=== PATIENT | female | born 1985 | race Hispanic/Latino ===

== ENCOUNTER 2019-08-13 17:11 | Day surgery (SDC) | payer OTHER ==
[2019-08-13] MEDS ORDERED: hydrALAZINE 20 MG/ML VIAL SLOW IVP PRN (18:10)
[2019-08-13 18:18] VITALS: BMI 35.7
[2019-08-13 18:41] LABS: Bilirubin Negative (Negative); Blood, Urine Negative (Negative); Clarity Clear (Clear); Glucose, Urine (Dipstick) Normal (Negative); Leukocyte Negative Leu/uL (Negative); Nitrite Negative (Negative); Protein, Urine (Dipstick) Negative (Neg-Trace); RBC/HPF 0-3 HPF (0-3); Squamous Epithelial 0-3 HPF (0-3); Urobilinogen Normal mg/dL (Less than 2)
[2019-08-13 18:44] LABS: Bacteria/HPF 1+ HPF (None Seen)
[2019-08-13] MEDS ORDERED: Lactated Ringer's 1,000 ML IV SCH ×2 (19:15)
[2019-08-13] MEDS: Sodium Chloride 0.9% 1,000 ML IV SCH ×2 (19:25→21:14)
[2019-08-13] MEDS ORDERED: Acetaminophen 500 MG TAB PO SCH (19:30)
[2019-08-13] MEDS ORDERED: Ondansetron PF 4 MG/2 ML Vial IVP SCH (19:30)
[2019-08-13 19:34] LABS: #Eosinphils 0.1 thou/uL (0.0-0.7); #Lymphocytes 1.8 thou/uL (1.20-3.40); #Monocytes 0.7 thou/uL (0.11-0.59); #Neutrophils 10.6 thou/uL (1.40-6.50); %Basophils 0.1 % (0.0-1.0); %Eosinophils 0.6 % (0.0-10.0); %Lymphocytes 13.4 % (21.0-51.0); %Neutrophils 80.9 % (42.0-75.0); Hemoglobin 11.8 g/dL (12.0-16.0); Mean Corpuscular HGB CONC 34.5 g/dL (32.0-36.0); Mean Corpuscular Hemoglobin 27.5 pg (27.0-31.0); Mean Corpuscular Volume 79.8 fL (78.0-98.0); Mean Platelet Volume 7.3 fL (7.4-10.4); Platelet Count 318 thou/uL (130-400); RBC Distribution Width 15.5 % (11.5-14.5); White Blood Cell (WBC) Count 13.1 thou/uL (4.8-10.8)
[2019-08-13] MEDS ORDERED: cefTRIAXone\\ROCEPHIN 2 GM in Sodium Chloride 0.9% 100 ML IVPB SCH (20:00)
--- NOTE | 2019-08-13 20:01 | ULT ---
ULTRASOUND RETROPERITONEUM COMPLETE: (RENAL) DATE: 08/13/2019 HISTORY: 34-year-old female with bilateral flank pain and nausea FINDINGS: The right kidney measures 13 x 6 x 5 cm. The left kidney measures 13 x 4 x 5.5 cm. Both kidneys have normal parenchymal echogenicity. There is no hydronephrosis. No moderate sized or large renal cystic or solid renal lesion is identified. The urinary bladder is empty, recently catheterized just prior to ultrasound exam. IMPRESSION: Normal
--- NOTE | 2019-08-13 20:06 | PRG ---
DATE OF SERVICE: 08/13/2019 PRIMARY OB: [facility]. CHIEF COMPLAINT: Flank pain. HISTORY OF PRESENT ILLNESS: The patient is a 34-year-old, G7, P4 female with an intrauterine at 23 weeks and 2 days, presenting with a 3-day history of left-sided flank pain, 1-day history of nausea and vomiting. She reports that the pain is in her left lower back area and it had been this morning wrapping around her abdomen to the front with sharp and stabbing, and at its most intense time earlier today, the patient had vomited twice. She also reports that the pain was so bad, is having trouble getting comfortable in any position. The patient reports that since coming to the hospital, without any medication, she is feeling better. She still has some pain in the left thigh, but it is minimal. The patient reports a history of pyelonephritis with her previous . She denies any known history of kidney stones. The patient recently was placed on amoxicillin for sinusitis that she has since completed. The patient denies fever. She does report feeling shaky at times. She denies headache, chest pain, or shortness of breath. She has had nausea for the last few days, but vomited twice today and had diarrhea yesterday. Denies constipation. Denies any new rashes, hip problems, knee problems, or muscle weakness. She does report also left-sided pain in her lower back and hip region that is worse with activity and movement. She denies urinary urgency or frequency. PAST MEDICAL HISTORY: History of pyelonephritis with her previous . PAST SURGICAL HISTORY: She has had 3 prior C-sections, D and C x2. ALLERGIES: NO KNOWN DRUG ALLERGIES. MEDICATIONS: 1. vitamins. 2. Recent course of amoxicillin. SOCIAL HISTORY: Denies drug, alcohol, or tobacco use. OB LABS: Unavailable at the time of dictation. REVIEW OF SYSTEMS: Per HPI. PHYSICAL EXAMINATION: VITAL SIGNS: Blood pressure 108/59, heart rate of 90, saturating at 100% on room air. Reported temperature of afebrile. GENERAL: The patient appears to be in no acute distress. She is alert, oriented, cooperative, and pleasant to interact with. HEAD: Normocephalic and atraumatic. LUNGS: Clear to auscultation bilaterally. HEART: Has a regular rate and rhythm. ABDOMEN: Gravid and soft and nontender. EXTREMITIES: Nontender and nonedematous. She has some SI joint tenderness on her back on the left side. She also had some plus or minus flank tenderness or CVA tenderness that is not easy to appreciate. : Exam has been deferred. heart tracing shows the fetus in the 140s with moderate retirement variability. Tocometer showing some irritability, not felt by the patient. LABORATORY DATA: Urinalysis shows negative for protein, 10 for ketones, negative for blood, negative for nitrites, negative for leukocyte esterase, 4 to 6 white blood cells, and 1+ bacteria. CBC is pending. ASSESSMENT AND PLAN: The patient is a 34-year-old multiparous female with an intrauterine at 23 weeks, coming in with 3 days of nausea, 1 day of vomiting, and severe pain that has since resolved. Urinalysis suggests point away from a kidney stone and suggests infection with the bacteria being present and 0 to 3 squamous cells. A urine culture has been ordered. The patient will be given 2 g of Rocephin IV with 2 L of IV fluids. The patient is afebrile and reports significant improvement in her symptoms spontaneously. I have ordered an ultrasound to evaluate her ureters and kidney. If everything appeared unremarkable, the patient will prefer to be discharged home with followup tomorrow here for perhaps another dose of Rocephin and follow up on urine cultures rather than in-house management. The patient has been given instructions that should she experiences significant worsening of her symptoms or fever, that she is to come back sooner. Job ID: [id number]
== END 2019-08-13 22:45 | disposition home or self-care (01) ==
LOC: L&D/OP 17:11
PROVIDERS: ATTEND Obstetrics & Gynecology
DX: O99.89 Other specified diseases and conditions complicating pregnancy, childbirth and the puerperium (principal); R10.9 Unspecified abdominal pain; Z3A.23 23 weeks gestation of pregnancy
CPT/HCPCS: 36415; 51701; 76770; 81001; 85025; 87077; 87086; 87186; 96361; 96365; 99283; J0696; J3490

== ENCOUNTER 2019-08-14 20:19 | Day surgery (SDC) | payer OTHER ==
[2019-08-14] MEDS ORDERED: hydrALAZINE 20 MG/ML VIAL SLOW IVP PRN (20:48)
--- NOTE | 2019-08-14 20:49 | PDOC.EVN ---
Event Note - Event Note Event Note: 10/14/19 patient just arrived for follow up, as per Dr Gilmore orders, from yesterday visit. I have ordered another IV dose of Rocephin. See dictation.
[2019-08-14 20:58] VITALS: BMI 35.4
[2019-08-14] MEDS ORDERED: Sodium Chloride 0.9% 1,000 ML IV SCH (21:00)
[2019-08-14] MEDS ORDERED: cefTRIAXone\\ROCEPHIN 1 GM in Sodium Chloride 0.9% 100 ML IVPB SCH (21:00)
--- NOTE | 2019-08-14 21:22 | PDOC.EVN ---
Event Note - Event Note Event Note: Patient seen at bedside Plan reviewed with her APU1 She is afebrile and BPs normal FHTs normal by Doppler We will await final UC&S after this IV Roscehin completed. Arelis with RX for macrobid. Clinically well
[2019-08-14 21:29] VITALS: BP 121/66; TEMP 98.5
[2019-08-14] MEDS ORDERED: FLU VACC QS2019-20(6MOS UP)/PF 60 MCG/0.5 ML SYRINGE IM ONE (22:00)
--- NOTE | 2019-08-14 22:02 | HP ---
TIME OF EVALUATION: 2049. LOCATION: Labor and delivery triage. PRIMARY OBSTETRICAL PROVIDER: [facility]. CHIEF COMPLAINT: Here for followup from yesterday's visit. HISTORY OF PRESENT ILLNESS: In brief, this is a patient who presented yesterday with Dr. Matt Gilmore transportation design engineer. The patient presented with a chief complaint of flank pain. The patient is a 34-year-old, G7, P4, with an IUP, who was at 23 weeks and about 3 days now, who presented with a 3-day history of left-sided flank pain yesterday. She also had some nausea and vomiting. Upon yesterday's evaluation, she received Rocephin and a urine culture was collected. She was told to come back today for urine culture followup and perhaps another dose of Rocephin. The working diagnosis at that time was possible UTI/early pyelonephritis. As the patient was clinically well, she was treated as an outpatient. Yesterday, she also had a renal ultrasound performed and the renal ultrasound, dated 08/13/2019, showed no hydronephrosis, no abnormal cystic or solid mass was identified, and the kidneys had normal parenchymal density. Impression was a normal ultrasound. The patient presents now and states that she feels better and her urine culture from yesterday has been reviewed by me. It is presumptively E. coli, but sensitivities are not back. PAST MEDICAL HISTORY: She does have a history of pyelonephritis with a previous . PAST SURGICAL HISTORY: Includes three prior C-sections and a D and C x2. ALLERGIES: NONE. MEDICATIONS: Include vitamins and a recent course of amoxicillin. SOCIAL HISTORY: Denies alcohol, drug, or tobacco use. PHYSICAL EXAMINATION: The patient will have a physical completed once she is fully admitted, as she has just arrived to labor and delivery and I have intervened early to place orders, and I am awaiting final nurse assessment for me to go in and see the patient. ASSESSMENT: This is a 34-year-old multiparas female at 23 weeks with possible urinary tract infection/subclinical pyelonephritis. Clinically she is better status post yesterday's treatment. She is here for followup per physician orders. PLAN: 1. We will continue with her IV fluids and give her normal saline. 2. The patient looks clinically well. 3. I have ordered 1 g of Rocephin in continuation of yesterday's plan. 4. I will write for her to have Macrobid as an outpatient for 10 more days. 5. I have instructed her to follow up with [facility] to make sure that the sensitivities of the urine culture are appropriate. Job ID: [id number]
== END 2019-08-14 22:50 | disposition home or self-care (01) ==
LOC: ERS 20:19 → L&D/OP 20:26
PROVIDERS: ATTEND Obstetrics & Gynecology
DX: O99.89 Other specified diseases and conditions complicating pregnancy, childbirth and the puerperium (principal); R10.9 Unspecified abdominal pain; O34.219 Maternal care for unspecified type scar from previous cesarean delivery; Z3A.23 23 weeks gestation of pregnancy
CPT/HCPCS: 96361; 96365; 99282; J0696; J3490

== ENCOUNTER 2019-08-26 13:22 | Inpatient (IN) | payer OTHER ==
[2019-08-26 17:59] VITALS: BMI 36.6
[2019-08-26] MEDS ORDERED: hydrALAZINE 20 MG/ML VIAL SLOW IVP PRN (18:34)
[2019-08-26] MEDS ORDERED: Acetaminophen 500 MG TAB PO PRN (18:34)
[2019-08-26] MEDS ORDERED: Docusate 100 MG CAP PO PRN (18:34)
[2019-08-26] MEDS ORDERED: Ondansetron PF 4 MG/2 ML Vial IVP PRN (18:34)
[2019-08-26 19:07] LABS: #Eosinphils 0.1 thou/uL (0.0-0.7); #Lymphocytes 1.6 thou/uL (1.20-3.40); #Monocytes 0.5 thou/uL (0.11-0.59); #Neutrophils 6.5 thou/uL (1.40-6.50); %Basophils 0.2 % (0.0-1.0); %Eosinophils 1.5 % (0.0-10.0); %Lymphocytes 18.5 % (21.0-51.0); %Monocytes 6.1 % (0.0-10.0); %Neutrophils 73.8 % (42.0-75.0); Hemoglobin 10.7 g/dL (12.0-16.0); Mean Corpuscular HGB CONC 34.4 g/dL (32.0-36.0); Mean Corpuscular Hemoglobin 27.3 pg (27.0-31.0); Mean Corpuscular Volume 79.2 fL (78.0-98.0); Mean Platelet Volume 6.6 fL (7.4-10.4); Platelet Count 275 thou/uL (130-400); RBC Distribution Width 14.6 % (11.5-14.5); Red Blood Cell (RBC) Count 3.94 mill/uL (4.20-5.40); White Blood Cell (WBC) Count 8.8 thou/uL (4.8-10.8)
[2019-08-26 19:25] LABS: ALT (SGPT) 9 U/L (8-55); AST (SGOT) 17 U/L (5-34); Albumin 3.4 g/dL (3.5-5.0); Alkaline Phosphatase 113 U/L (40-110); Anion Gap 11 mmol/L (10-20); BUN (Urea Nitrogen) 7 mg/dL (7.0-18.7); Bilirubin, Total 0.2 mg/dL (0.2-1.2); Calc. Creatinine Clearance 206 mL/min (70-130); Calcium 8.8 mg/dL (7.8-10.44); Carbon Dioxide 20 mmol/L (22-29); Chloride 108 mmol/L (98-107); Estimated GFR-MDRD Greater than 90; Globulin 3.5 g/dL (2.4-3.5); Glucose 95 mg/dL (70-105); Potassium 3.7 mmol/L (3.5-5.1); Protein, Total 6.9 g/dL (6.0-8.3); Sodium 135 mmol/L (136-145)
--- NOTE | 2019-08-26 20:32 | PDOC.FPRHP ---
- History of Present Illness Chief Complaint: Abdominal pain History of Present Illness: Patient is a 34 yo female who is currently at 24.5 weeks by LMP c/w 15.6 wk U/S (GREG 12/11/19) who presents with complaint of abdominal pain. Patient states that the pain is sharp and occurs on/off in her left flank region. Pain radiates around to LLQ and left groin. Patient states when pain starts it brings her to tears. She says this pain is similar to the pain she was experiencing during her prior admission to [facility] for nephrolithiasis on 08/23- 10/31. At that time she passed black sediment and pain improved. She states when she went home from that admission she thought the pain had resolved and did not experience any additional pain episodes until earlier this morning. Patient additionally complains of nausea, headache, blurry vision, and dizziness. Denies vomiting, dysuria, fever/chills, itching. Of note patient has an initial presentation on UTI on 08/13-01/01 for which she was treated with Rocephin and Amoxicillin. During the admission on 08/23/19 she did not receive any ABx. Urine culture was taken during that admission though and did result with ESBL E. Coli earlier today. - Allergies/Adverse Reactions Allergies Allergy/AdvReac Type Severity Reaction Status Date / Time No Known Allergies Allergy Verified 08/26/19 23:22 - Home Medications Medication Instructions Recorded Confirmed Type Vitamin 1 tab PO DAILY tab 04/20/17 08/26/19 Rx Clotrimazole 1% Cream [Lotrimin 1% 0 gm TOP BID #1 tube 08/24/19 08/26/19 Rx Cream] Sulfamethoxazole/Trimethoprim 1 tab PO BID 10 Days #20 tab 08/27/19 Rx [Bactrim DS] - History PMHx: Hx of pyelonephritis with last (6th) for which she was hospitalized for 5 days. Hx of nephrolithiasis in this with previous admission on 08/23/19. OB Hx: 1 , 2 spontaneous abortions, 2 D&C and 3 C-sections. Current at 24.5 wks by LMP c/w 15.6 wk U/S. Borderline 1hr GTT at 136. PSHx: as above, left tibia & fibula repair in March 2016, left ankle--3 repairs/ revisions in 2017 FHx: HTN, T2DM, CAD, Ovarian Cancer in mother (dx in age 40s) and maternal aunt (dx in age 50s); Uterine Cancer in maternal grandmother (dx in age 70s) Social: Denies tobacco or EtOH use - Review of Systems General: denies: fever/chills, weight/appetite/sleep changes, fatigue Eyes: reports: vision changes ENT: denies: nasal congestion, rhinorrhea Respiratory: denies: cough, congestion, shortness of breath Cardiovascular: denies: chest pain, edema Gastrointestinal: reports: nausea, abdominal pain. denies: vomiting, diarrhea, constipation Genitourinary: denies: dysuria, discharge Skin: denies: rashes, lesions Musculoskeletal: denies: pain, tenderness, swelling Neurological: denies: numbness, weakness - Vital signs BP: 113/71 HR: 97 RR: 18 Tmax: 98.3F Pox: 96% on RA Wt: 100 kg - Physical Exam Constitutional: NAD, awake, alert and oriented, well developed HEENT: normocephalic and atraumatic, EOMI, conjunctiva clear, grossly normal vision, grossly normal hearing, MMM Neck: supple, FROM, no JVD Heart: RRR, normal S1/S2, no murmurs/rubs/gallops, pulses present, no edema Lungs: CTAB, no respiratory distress, no rales/rhonchi, no wheezing Abdomen: soft, bowel sounds present -Abdomen: TTP across lower abdomen. Positive for CVA tenderness on left. Musculoskeletal: normal structure, normal tone Neurological: no focal deficit, normal sensation Skin: no rash/lesions, good turgor Psychiatric: normal mood and affect, intact recent and remote memory FMR H&P: Results - Labs Result Diagrams: 08/26/19 18:57 08/26/19 18:57 Lab results: WBC 8.8 thou/uL (4.8-10.8) 08/26/19 18:57 Hgb 10.7 g/dL (12.0-16.0) L 08/26/19 18:57 Hct 31.2 % (36.0-47.0) L 08/26/19 18:57 MCV 79.2 fL (78.0-98.0) 08/26/19 18:57 Plt Count 275 thou/uL (130-400) 08/26/19 18:57 Neutrophils % 73.8 % (42.0-75.0) 08/26/19 18:57 Sodium 135 mmol/L (136-145) L 08/26/19 18:57 Potassium 3.7 mmol/L (3.5-5.1) 08/26/19 18:57 Chloride 108 mmol/L (98-107) H 08/26/19 18:57 Carbon Dioxide 20 mmol/L (22-29) L 08/26/19 18:57 BUN 7 mg/dL (7.0-18.7) 08/26/19 18:57 Creatinine 0.60 mg/dL (0.6-1.1) 08/26/19 18:57 Glucose 95 mg/dL (70-105) 08/26/19 18:57 Calcium 8.8 mg/dL (7.8-10.44) 08/26/19 18:57 Total Bilirubin 0.2 mg/dL (0.2-1.2) 08/26/19 18:57 AST 17 U/L (5-34) 08/26/19 18:57 ALT 9 U/L (8-55) 08/26/19 18:57 Alkaline Phosphatase 113 U/L (40-110) H 08/26/19 18:57 Serum Total Protein 6.9 g/dL (6.0-8.3) 08/26/19 18:57 Albumin 3.4 g/dL (3.5-5.0) L 08/26/19 18:57 - Radiology Interpretation Other Status: report reviewed by me (Renal U/S: normal, no hydronephrosis seen) FMR H&P: A/P - Problem List (1) ESBL (extended spectrum beta-lactamase) producing bacteria infection Status: Acute Code(s): A49.9 - BACTERIAL INFECTION, UNSPECIFIED; Z16.12 - EXTENDED SPECTRUM BETA LACTAMASE (ESBL) RESISTANCE (2) UTI (urinary tract infection) during Status: Acute Code(s): O23.40 - UNSP INFECTION OF URINARY TRACT IN , UNSP TRIMESTER (3) Second trimester Status: Acute Code(s): Z34.92 - ENCNTR FOR SUPRVSN OF NORMAL PREG, UNSP, SECOND TRIMESTER (4) History of nephrolithiasis Status: Acute Code(s): Z87.442 - PERSONAL HISTORY OF URINARY CALCULI (5) History of pyelonephritis during Status: Acute Code(s): Z87.59 - PERSONAL HISTORY OF COMP OF PREG, CHLDBRTH AND THE PUERP; Z87.440 - PERSONAL HISTORY OF URINARY (TRACT) INFECTIONS - Plan Patient is a 24yo female at 24.5 wks EGA who presents with abdominal and flank pain is admitted for UTI and suspected nephrolithiasis: #UTI -Urine culture from 08/23/19 admission returned positive for ESBL E. Coli -start Bactrim PO -vitals q4h, currently afebrile -CBC, CMP, procal #Nephrolithiais, suspected -during previous admission on 08/23/19 patient passed black sediment, experience similar pain today -will repeat Renal U/S (last admission showed right hydronephrosis) -consider abdominal CT if renal u/s returns abnormal -continue to strain urine -LR @ 125 #2nd Trimester -at 24.5 wks today by LMP consistent with 15.6 wk U/S -GREG is 12/11/2019 -recent 1h GTT was borderline, glucose 136 -will check fasting BG in AM Diet: Regular Code status: FULL Dispo: Stable, admitted for observation on women's unit. Will check Renal U/S and continue to monitor for additional stone passage. Treat UTI and rehydrate. Anticipate LOS <2 days. FMR H&P: Upper Level - Pertinent history 34 year old at 24.5 wks by LMP/15.6 wks with GREG 12/11/2018 presents for ESBL E. coli UTI. Patient was seen on 08/23-08/24 and diagnosed with nephrolithiasis. Patient passed stone/sludge at that time. Her symptoms remarkably improved with hydration and passing of stone. Urine culture results from that hospital stay were ESBL E. coli, sensitive to bactrim. She was also hospitalized 08/13-08/14 for UTI. She was treated with rocephin and amoxicililn and then transitioned to 10 day course of macrobid. Patient initially felt better after starting antibiotics, but symptoms acutely worsened and she had severe left sided flank pain that she described as debilitating and associated with nausea and vomiting which prompted her second ED visit. Patient states that since last discharge from hospital, she has been doing well. Last night she started to have left sided flank pain again. She denies dysuria, vaginal bleeding, vaginal discharge, LoF, or contractions. Pain is 5/10 today, whereas previously it had been 10/10. Patient instructed to strain her urine after last discharge from hospital. Patient endorses dizziness and blurry vision. PMH: Recurrent UTI's OB Hx: Hx pyelonephritis in previous , SAB x2 with D&C x2, nephrolithiasis during current Surgical Hx: C/S x3, 3 ankle surgeries FH: Mom with ovarian cancer in 40's, maternal aunt with ovarian cancer Allergies: NKDA - Pertinent findings General: Alert and oriented x3. No acute distress. HEENT: MMM, EOMI Resp: CTA, No acute respiratory distress Card: RRR, No murmur Abdomen: Soft, non-tender. Left sided CVA. Gravid. Ext: No cyanosis or edema Skin: No rashes or lesions. - Plan Date/Time: 08/26/192031 I, Venus Maldonado, have evaluated this patient and agree with findings/plan as outlined by operations intern resident. Pertinent changes/additions are listed here. ESBL E. coli UTI - Urine culture from recent hospitalization 08/24 - Sensitive to bactrim which was started 08/26 - Complete course of bactrim and start patient on ppx with Macrobid for remainder of - Renal ultrasound with no abnormalities - Patient passed stone/sludge during last hospitalization. She has been straining since that time and has not collected anything. - Continue to strain - Patient with minor CVA tenderness, but much improved from last hospitalization. - Maintenance IVF @ 125 mL/hr - REBECCA after completion of antibiotics - Procalcitonin 0.04 Nephrolithiasis - Appears resolved - continue to strain urine, passed stone/sludge during last visit. - Will fluid hydrate with LR @ 125 mL/hr Hx pyelonephritis in previous and current - No evidence of kidney inflammation on renal ultrasound done on this hospital admission - Patient appears clinically improved - Treating for ESBL E. coli UTI as indicated above Recurrent UTI's - Will need to be on macrobid for ppx during remainder of after treatment for ESBL E. coli UTI Hx SAB x2 - D&C x2 AMA - Needs anatomy ultrasound with MFM - NIPT declined - Patient not on daily ASA Borderline 1h GTT - Will do FBG while in hospital - Recommend 3h GTT outpatient sIUP - at 24.5 wks - IOB labs reviewed and WNL Anemia of - H/H 10.7/31.2 - Will start iron supplementation, will also add stool softener - Consider iron transfusion at 28 wks C/S x3 - Patient at risk for placenta accreta - Followed by M Dispo: Admit to Radiology Asst/Women's. Anticipate LOS 24-48 hours. Addendum - Attending - Attending Attestation Date/Time: 08/26/191926 I personally evaluated the patient and discussed the management with Dr. Dillard and Joel I agree with the History, Examination, Assessment and Plan documented above with any addition or exceptions noted below. Sent for direct admission from clinic due to concern for infected nephrolithasis. Patient recently admitted for nephrolithasis. Culture at time of admission recent resulted as positive. Patient states pain has improved since discharge. Again denies urinary symptoms. Will place patient in obs. Treat based on sensitivities. Due to recurrent hx of positive urine cultures, will need ppx until 6 wks pp. Would consider macrobid vs keflex. Renal sono ordered and pending at present to evaluate for stone. Patient has been straining urine. Last evidence of stone passage was during hospital stay. Denies fever and chills. +FM. No ctx, LOF, and VB. Marcellus
[2019-08-26] MEDS: Lactated Ringer's 1,000 ML IV SCH (20:35)
--- NOTE | 2019-08-26 20:39 | ULT ---
RENAL ULTRASOUND: Date: 08-26-19 Comparison: 08-23-19 History: Recurrent urinary tract infection. Technique: Multiplanar grayscale sonographic imaging of the kidneys and urinary bladder obtained. FINDINGS: Left kidney measures 12.5 x 6.1 x 5.6 cm and the right kidney measures 12.0 x 5.5 x 6.3 cm. Urinary b ladder volume is 108 cc. No renal mass, hydronephrosis or renal stone noted. IMPRESSION: Unremarkable renal ultrasound. POS: ROSHNI
[2019-08-26] MEDS ORDERED: Sulfameth/Trimethoprim DS 800-160mg TAB PO SCH (21:45)
[2019-08-26] MEDS ORDERED: diphenhydrAMINE 25 MG CAP PO PRN (23:10)
[2019-08-27] MEDS: Lactated Ringer's 1,000 ML IV SCH ×2 (04:17→11:47)
--- NOTE | 2019-08-27 06:41 | PDOC.OBAPN ---
FMR OB AP PN: Sub - Interval History Hospital Day: 1 Chief Complaint: ESBL E. Coli UTI Indentification: 34yo @ 24.6wks (GREG 12/11/19) Interval History: Did well overnight, states she is comfortable and not experiencing pain. FMR OB AP PN: Obj - Maternal Vital signs: Selected Entries 08/27/19 04:15 Temperature 98.8 F Pulse Rate 90 Blood Pressure 106/55 L [Semi-Fowlers] Respiratory 18 Rate O2 Sat by Pulse 97 Oximetry - Urine output I&O: 08/25/19 08/26/19 08/27/19 06:59 06:59 06:59 Intake Total 1939 Output Total 2225 Balance -286 FMR OB AP PN: Exam - Physical Exam General: NAD, awake, alert and oriented HEENT: normocephalic and atraumatic, PERRLA, EOMI, grossly normal vision, grossly normal hearing Neck: supple, FROM, trachea midline Breast: symmetric Heart: RRR, normal S1/S2, no murmurs/rubs/gallops, pulses present, no edema General: CTAB, no respiratory distress, good air movement, no rales/rhonchi, no wheezing Abdomen: soft, gravid, non-tender Musculoskeletal: pulses present, FROM in all four extremities Skin: no rash, good tugor Lymphatic: no unusual bruising or bleeding, no petechia Psychiatric: intact recent and remote memory, good judgement and insight, normal mood and affect FMR OB AP PN: Data - Labs Lab results: Laboratory Results - last 24 hr 08/26/19 08/26/19 08/26/19 18:57 18:57 18:57 WBC 8.8 RBC 3.94 L Hgb 10.7 L Hct 31.2 L MCV 79.2 MCH 27.3 MCHC 34.4 RDW 14.6 H Plt Count 275 MPV 6.6 L Neutrophils % 73.8 Neutrophils % (Manual) Not Reportable Lymphocytes % 18.5 L Monocytes % 6.1 Eosinophils % 1.5 Basophils % 0.2 Neutrophils # 6.5 Lymphocytes # 1.6 Monocytes # 0.5 Eosinophils # 0.1 Basophils # 0.0 Sodium 135 L Potassium 3.7 Chloride 108 H Carbon Dioxide 20 L Anion Gap 11 BUN 7 Creatinine 0.60 Estimated GFR (MDRD) Greater than 90 Glucose 95 POC Glucose Calcium 8.8 Total Bilirubin 0.2 AST 17 ALT 9 Alkaline Phosphatase 113 H Serum Total Protein 6.9 Albumin 3.4 L Globulin 3.5 Albumin/Globulin Ratio 1.0 L Procalcitonin 0.04 08/26/19 08/27/19 22:37 06:20 WBC RBC Hgb Hct MCV MCH MCHC RDW Plt Count MPV Neutrophils % Neutrophils % (Manual) Lymphocytes % Monocytes % Eosinophils % Basophils % Neutrophils # Lymphocytes # Monocytes # Eosinophils # Basophils # Sodium Potassium Chloride Carbon Dioxide Anion Gap BUN Creatinine Estimated GFR (MDRD) Glucose POC Glucose 101 92 Calcium Total Bilirubin AST ALT Alkaline Phosphatase Serum Total Protein Albumin Globulin Albumin/Globulin Ratio Procalcitonin - Imaging Imaging: Unremarkable repeat renal US FMR OB AP PN: A/P Disposition: Stable Discussion: Date/Time: 08/27/19 0639 Patient is a 24yo female at 24.6 wks EGA who presented with abdominal and flank pain is admitted for UTI and suspected nephrolithiasis: 1. UTI -Urine culture from 08/23/19 admission returned positive for ESBL E. Coli -start Bactrim PO -no laboratory abnormalities indicative of severe infection 2. Nephrolithiais, suspected -during previous admission on 08/23/19 patient passed black sediment -repeat US was unremarkable and did not show evidence of hydronephrosis or renal calculi. -continue to strain urine -she is asymptomatic, and pain free. Will likely d/c today with oral antibiotics. 3. 2nd Trimester -at 24.6 wks today (GREG is 12/11/2019) -recent 1h GTT was borderline, glucose 136 -will check fasting BG in AM Diet: Regular Code status: FULL Discussed with Dr. Zuniga who is in agreement with above documentation, exceptions below. Addendum - Attending - Attending Attestation Date/Time: 08/27/19 1450 I personally evaluated the patient and discussed the management with Dr. Dwyer I agree with the History, Examination, Assessment and Plan documented above with any addition or exceptions noted below - Patient denies complaints. No further flank pain. denies any fevers. Afebrile VSS. A/P: 1) ESBL E. coli UTI - will d/c home with po bactrim. May need prophylaxis for rest of . 2) Possible urolithiasis - repeat USG with no hydronephrosis; most likely stone passed.
[2019-08-27] MEDS ORDERED: Ferrous Sulfate 325 MG TAB PO SCH (08:00)
[2019-08-27] MEDS ORDERED: Docusate 100 MG CAP PO SCH ×2 (09:00)
[2019-08-27] MEDS ORDERED: Clotrimazole 1 % Cream 30 GM TUBE TOP SCH (09:00)
[2019-08-27] MEDS ORDERED: Sulfameth/Trimethoprim DS 800-160mg TAB PO SCH (09:00)
[2019-08-27] MEDS ORDERED: Prenatal Vitamin 1 TAB PO SCH (09:00)
[2019-08-27] MEDS ORDERED: FLU VACC QS2019-20(6MOS UP)/PF 60 MCG/0.5 ML SYRINGE IM ONE (09:00)
[2019-08-27 11:45] VITALS: BP 116/61; TEMP 97.8
--- NOTE | 2019-08-28 01:14 | DIS ---
DATE OF ADMISSION: 08/26/2019 DATE OF DISCHARGE: 08/27/2019 RESIDENT: Mala Dwyer MD ADMITTING ATTENDING: Joseline Zuniga MD. CONSULTS: None. PROCEDURES: None. PRIMARY DIAGNOSIS: Extended-spectrum beta-lactamases Escherichia coli urinary tract infection. SECONDARY DIAGNOSES: Second-trimester , suspected nephrolithiasis. HISTORY OF PRESENT ILLNESS: Ms. Dee Dee Solomon is a G7, P 4-0-2-4, 34-year-old female who is currently 24.5 weeks gestation by last menstrual period/second trimester ultrasound with an EDC of 12/11/2019, who presented with a complaint of abdominal pain. She was recently hospitalized and discharged for the same kind of abdominal pain which we believe was due to nephrolithiasis due to evidence of hydronephrosis on renal ultrasound. Other causes in the differential included ovarian torsion, cholestasis of , acute cholecystitis, nephrolithiasis, pyelonephritis. She improved during her last stay with pain management and the passage of some black urinary sediment. However, on the day of this admission, she was called because the culture results from the clinic showed ESBL E coli bacteria which was sensitive to several antibiotics and it was felt that she needed to be evaluated for the potential for infected nephrolithiasis. Upon arrival, we repeated a renal ultrasound which showed no evidence of hydronephrosis, which further increases our suspicion of a passed kidney stone. Her white count was normal at 8.8 and her procalcitonin was 0.04, which was also unremarkable. We started her on p.o. Bactrim and gave her IV fluids. She was discharged one day later. DISPOSITION: Stable. DISCHARGE INSTRUCTIONS: 1. Location: Home. 2. Diet: Regular. 3. Activity: Ad mike. 4. Follow up with clinic in 2 weeks. Job ID: [id number] MTDD
== END 2019-08-27 12:45 | disposition home or self-care (01) | DRG 832 ==
LOC: 3SE 16:33 → OBSVTOIN 16:33 → EEVIPCON 16:33
PROVIDERS: ADMIT Family Medicine; ATTEND Family Medicine
DX: O23.42 Unspecified infection of urinary tract in pregnancy, second trimester (principal); O26.832 Pregnancy related renal disease, second trimester; B96.20 Unspecified Escherichia coli [E. coli] as the cause of diseases classified elsewhere; N20.0 Calculus of kidney; Z3A.24 24 weeks gestation of pregnancy; O99.012 Anemia complicating pregnancy, second trimester
CPT/HCPCS: 36415; 36416; 76705; 76770; 76815; 76857; 80048; 80053; 80076; 81001; 82239; 84145; 85025; 87077; 87086; 87186; 96361; 96374; 96375; 96376; G0378; J1200; J2270; J2405; Q0163

== ENCOUNTER 2019-10-02 20:24 | Day surgery (SDC) | payer OTHER ==
[2019-10-02 21:10] VITALS: BP 106/65; TEMP 98.3; BMI 39.1
[2019-10-02] MEDS ORDERED: Ondansetron PF 4 MG/2 ML Vial IVP PRN (21:34)
[2019-10-02] MEDS ORDERED: Butorphanol Tartrate 1 MG/ML VIAL SLOW IVP PRN (21:40)
--- NOTE | 2019-10-02 21:41 | PDOC.FPROB ---
FMR OB H&P: HPI - History of Present Illness Chief Complaint: flank pain Indentification: 34yo @ 30.0 wks (GREG 12/11/2019) History of Present Illness: She presented to L&D for evaluation of flank pain. She states that the pain started yesterday and today she vomited a couple of times. She has a history of pyelonephritis in her last and in this she has had a significant UTI and suspected kidney stones. She states that this is the same pain as when she passed the stone last admission. She is not currently taking antibiotics. She received her flu shot last week and has been feeling bad since then, with runny nose and congestion. 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 - Family History Family History: HTN, T2DM, CAD, Ovarian Cancer in mother (dx in age 40s) and maternal aunt (dx in age 50s); Uterine Cancer in maternal grandmother (dx in age 70s) FMR OB H&P: Medications - Current Home Medications: Medication Instructions Recorded Confirmed Type Vitamin 1 tab PO DAILY tab 04/20/17 10/02/19 Rx Ondansetron [Zofran ODT] 4 mg PO Q6H PRN 5 Days #20 tab 10/03/19 Rx Allergies/Adverse Reactions: Allergies Allergy/AdvReac Type Severity Reaction Status Date / Time No Known Allergies Allergy Verified 08/26/19 23:22 FMR OB H&P: ROS - Review of Systems General: reports: fatigue. denies: fever/chills, weight/appetite/sleep changes Eyes: reports: vision changes, scotomas. denies: eye pain ENT: reports: nasal congestion, rhinorrhea, sore throat Cardiovascular: denies: chest pain, palpitation, edema Respiratory: reports: cough, congestion. denies: shortness of breath Gastrointestinal: reports: abdominal pain, nausea, vomiting. denies: indigestion, bloating, diarrhea, constipation Genitourinary (Female): denies: dysuria, hematuria, polyuria, vaginal pain, vaginal bleeding Musculoskeletal: denies: pain, stiffness Neurologic: denies: numbness, syncope, seizures, weakness Integumentary: denies: itching, rash, lesions Hematologic/Lymphatic: denies: prolonged or excessive bleeding FMR OB H&P: Vital Signs - Maternal Vital signs: Vital Signs - First Documented Temp Pulse Resp BP Pulse Ox 98.3 F 89 20 106/65 99 10/02/19 20:56 10/02/19 20:56 10/02/19 20:56 10/02/19 20:56 10/02/19 20:56 - Heart Tones Baseline: 140 Variability: moderate Acceleration: present Deceleration: absent FMR OB H&P: Physical Exam - Physical Exam General: NAD, awake, alert and oriented HEENT: normocephalic and atraumatic, PERRLA, EOMI, MMM, grossly normal vision, grossly normal hearing Neck: supple, trachea midline Heart: RRR, normal S1/S2, no murmurs/rubs/gallops, pulses present, no edema General: CTAB, no respiratory distress, good air movement, no rales/rhonchi, no wheezing, no retractions Abdomen: soft, gravid, non-tender Musculoskeletal: normal gait and station, pulses present Neurological: sensation to pain,touch and proprioception grossly normal Skin: no rash, good tugor, capillary refill <2 seconds Lymphatic: no unusual bruising or bleeding, no purpura, no petechia Psychiatric: intact recent and remote memory, good judgement and insight FMR OB H&P: Results - Labs Lab results: Laboratory Tests 10/02/19 23:05 Urine Color Yellow Urine Clarity Clear Urine pH 6.5 Ur Specific Dowell 1.022 Urine Protein 10 Urine Glucose (UA) Normal Urine Ketones 60 A Urine Blood Negative Urine Nitrite Negative Urine Bilirubin Negative Urine Urobilinogen Normal Ur Leukocyte Esterase Negative Urine RBC 0-3 Urine WBC 0-3 Ur Squamous Epith Cells 0-3 Urine Bacteria None Seen Laboratory Tests 10/02/19 21:47 WBC 13.5 H RBC 4.26 Hgb 11.8 L Hct 34.8 L Plt Count 298 - Imaging Imaging: Renal US: no evidence of hydronephrosis. Isoechoic nodular focus in the middle left kidney of uncertain etiology, conceivably this could represent focal pyelo. FMR OB H&P: A/P Disposition: Stable, Discharge home after monitoring for > 2 hours and labs / imaging studies resulted. Discussion: Date/Time: 10/02/192140 Flank pain - history of significant UTI's and possible history of nephrolithiasis. - Renal US not remarkable for hydronephrosis or obstruction. Questionable evidence of pyelonephritis. - UA clean, except for ketones, making pyelonephritis much less likely. Afebrile , non-tender to palpation also make pyelo less likely. - pain resolved with Stadol and Zofran - FHTs monitored for >2 hours. Reassuring. Baseline 130-140, good variability, accells present, decels absent. Disposition: She was discharged home with zofran for nausea and instructions to f/u with [facility] this wk or early next wk. She does not appear to have pyelonephritis or cystitis at this time. This H&P was discussed with Drs. Miller and who agree with the above documentation and plan.
[2019-10-02 21:55] LABS: #Basophils 0.2 thou/uL (0.0-0.2); #Eosinphils 0.1 thou/uL (0.0-0.7); #Lymphocytes 1.4 thou/uL (1.20-3.40); #Monocytes 0.7 thou/uL (0.11-0.59); #Neutrophils 11.2 thou/uL (1.40-6.50); %Basophils 1.7 % (0.0-1.0); %Eosinophils 0.5 % (0.0-10.0); %Lymphocytes 10.1 % (21.0-51.0); %Monocytes 5.3 % (0.0-10.0); %Neutrophils 82.5 % (42.0-75.0); Hemoglobin 11.8 g/dL (12.0-16.0); Mean Corpuscular Hemoglobin 27.7 pg (27.0-31.0); Mean Corpuscular Volume 81.6 fL (78.0-98.0); Mean Platelet Volume 6.8 fL (7.4-10.4); Platelet Count 298 thou/uL (130-400); RBC Distribution Width 15.8 % (11.5-14.5); Red Blood Cell (RBC) Count 4.26 mill/uL (4.20-5.40); White Blood Cell (WBC) Count 13.5 thou/uL (4.8-10.8)
[2019-10-02 22:13] LABS: ALT (SGPT) 12 U/L (8-55); AST (SGOT) 17 U/L (5-34); Albumin 3.4 g/dL (3.5-5.0); Alkaline Phosphatase 155 U/L (40-110); Anion Gap 13 mmol/L (10-20); BUN (Urea Nitrogen) 6 mg/dL (7.0-18.7); Bilirubin, Total 0.2 mg/dL (0.2-1.2); Calc. Creatinine Clearance 254 mL/min (70-130); Carbon Dioxide 19 mmol/L (22-29); Chloride 106 mmol/L (98-107); Estimated GFR-MDRD Greater than 90; Globulin 3.7 g/dL (2.4-3.5); Glucose 100 mg/dL (70-105); Potassium 3.8 mmol/L (3.5-5.1); Protein, Total 7.1 g/dL (6.0-8.3); Sodium 134 mmol/L (136-145)
[2019-10-02] MEDS ORDERED: Ondansetron ODT 4 MG TAB PO PRN (22:48)
[2019-10-02 23:16] LABS: Bacteria/HPF None Seen HPF (None Seen); Bilirubin Negative (Negative); Blood, Urine Negative (Negative); Clarity Clear (Clear); Glucose, Urine (Dipstick) Normal (Negative); Leukocyte Negative Leu/uL (Negative); Nitrite Negative (Negative); Protein, Urine (Dipstick) 10 mg/dL (Neg-Trace); RBC/HPF 0-3 HPF (0-3); Squamous Epithelial 0-3 HPF (0-3); Urobilinogen Normal mg/dL (Less than 2); WBC/HPF 0-3 HPF (0-3)
[2019-10-02 23:19] LABS: Urine Culture Reflex No No
--- NOTE | 2019-10-02 23:50 | ULT ---
Exam: Bilateral renal ultrasound complete: HISTORY: History pyelonephritis with concern for renal calculi 30 week patient bilateral flank pain COMPARISON: 08/26/2019 FINDINGS: Right kidney: 11.8 x 4.7 x 4.9 cm Left kidney: 13.0 x 6.3 x 5.2 cm No renal hydronephrosis. No evidence for abnormal perinephric process. There is a somewhat poorly defined 2 x 2.7 x 2.8 cm isoechoic focal nodular area in the region of the mid left kidney. I'm not certain as to the etiology of this, this could represent some focal pyelonephritis. No evidence for perinephric process. The bladder is empty. IMPRESSION: No evidence for renal hydronephrosis. 2 x 2.7 x 2.8 cm diameter isoechoic nodular focus in the mid left kidney of uncertain etiology, milagros ivably this could represent some focal pyelonephritis. This area was not definitely demonstrated on prior study.
== END 2019-10-03 01:39 | disposition home health service (06) ==
LOC: L&D/OP 20:24
PROVIDERS: ATTEND Obstetrics & Gynecology
DX: O99.89 Other specified diseases and conditions complicating pregnancy, childbirth and the puerperium (principal); R10.9 Unspecified abdominal pain; O21.2 Late vomiting of pregnancy; O09.523 Supervision of elderly multigravida, third trimester; O34.219 Maternal care for unspecified type scar from previous cesarean delivery; Z3A.30 30 weeks gestation of pregnancy
CPT/HCPCS: 36415; 76770; 80053; 81001; 83690; 85025; J0595; J2405; Q0162

== ENCOUNTER 2019-10-03 12:51 | Observation (INO) | payer OTHER ==
[2019-10-03 13:54] VITALS: BMI 38.7
[2019-10-03] MEDS ORDERED: hydrALAZINE 20 MG/ML VIAL SLOW IVP PRN ×2 (13:56→14:24)
[2019-10-03] MEDS ORDERED: Morphine 4 MG/ML VIAL SLOW IVP PRN (14:20)
[2019-10-03] MEDS ORDERED: Acetaminophen 500 MG TAB PO PRN (14:24)
[2019-10-03] MEDS ORDERED: Ondansetron PF 4 MG/2 ML Vial IVP PRN (14:24)
[2019-10-03] MEDS ORDERED: Promethazine HCl 25 MG/ML VIAL IM PRN (14:24)
[2019-10-03] MEDS: Lactated Ringer's 1,000 ML IV SCH ×2 (14:30→17:38)
--- NOTE | 2019-10-03 14:57 | PDOC.FPROB ---
FMR OB H&P: HPI - History of Present Illness Chief Complaint: Flank pain History of Present Illness: Patient is a 34 yo female who is currently at 30.1 weeks by LMP c/w 15.6 wk U/S (GREG 12/11/19) who presents with complaint of left flank pain. Pt has been seen here multiple times during this for similar complaints and has been found to have UTI's or pyelonephritis with each encounter. She states that each time she has been started on abx her sx have improved for a short period of time. Pt had to be hospitalized with her last to receive IV abx for pyelo. Patient states that the pain is sharp and occurs on/off in her left flank region. Pain radiates around to LLQ and left groin. Patient states when pain starts it brings her to tears. Pain is similar to all previous visits. Patient additionally complains of mild dysuria starting yesterday as well as subjective fevers and chills. Of note patient was seen here yesterday for the same symptoms and had a renal US performed. This demonstrated a 2 x 2.7 x 2.8cm isoechoic nodular focus in the mid left kidney of uncertain etiology, which could represent some focal pyelonephritis. This area was not previously demonstrated on her prior renal US during this . FMR OB H&P: Current - Care : 7 Para: [id number] Gestational age: 30.1 Due date: 12/11/2019 Dating Criteria: LMP/15.6wk sono FMR OB H&P: History - Past Medical History PMH: Hx of pyelonephritis with last (6th) for which she was hospitalized for 5 days. Hx of nephrolithiasis in this with previous admission on 08/23/19. - OB History OB History: 1 , 2 spontaneous abortions, 2 D&C and 3 C-sections. Current at 30.1 wks by LMP c/w 15.6 wk U/S. Borderline 1hr GTT at 136. Polyhydramnios and AMA. - Surgical History Sx History: as above, left tibia & fibula repair in March 2016, left ankle--3 repairs/ revisions in 2017 - Social History Social History: enies tobacco or EtOH use - Family History Family History: HTN, T2DM, CAD, Ovarian Cancer in mother (dx in age 40s) and maternal aunt (dx in age 50s); Uterine Cancer in maternal grandmother (dx in age 70s) FMR OB H&P: Medications - Current Home Medications: Medication Instructions Recorded Confirmed Type Vitamin 1 tab PO DAILY tab 04/20/17 10/02/19 Rx Ondansetron [Zofran ODT] 4 mg PO Q6H PRN 5 Days #20 tab 10/03/19 Rx Allergies/Adverse Reactions: Allergies Allergy/AdvReac Type Severity Reaction Status Date / Time No Known Allergies Allergy Verified 08/26/19 23:22 FMR OB H&P: ROS - Review of Systems General: reports: fever/chills. denies: weight/appetite/sleep changes, recent trauma Eyes: denies: vision changes, double vision ENT: denies: nasal congestion, rhinorrhea Cardiovascular: denies: chest pain, palpitation, edema Respiratory: denies: cough, congestion, shortness of breath Gastrointestinal: denies: abdominal pain, nausea, vomiting, diarrhea Genitourinary (Female): reports: dysuria, other (left flank pain). denies: incontinence, polyuria, vaginal discharge, vaginal pain, vaginal bleeding, contractions Neurologic: denies: weakness, headache Integumentary: denies: itching, rash Psychological: denies: depression, anxiety FMR OB H&P: Vital Signs - Maternal Vital signs: Vital Signs - First Documented Temp Pulse Resp BP Pulse Ox 98.2 F 87 20 108/65 97 10/03/19 13:41 10/03/19 13:41 10/03/19 13:41 10/03/19 13:41 10/03/19 13:41 - Heart Tones Baseline: 135 Variability: moderate Acceleration: present Deceleration: absent Category: category 1 FMR OB H&P: Physical Exam - Physical Exam General: NAD, awake, alert and oriented HEENT: EOMI, MMM, no scleral icterus, grossly normal vision, grossly normal hearing Neck: supple, FROM Heart: RRR, normal S1/S2 General: CTAB, no respiratory distress, good air movement, no rales/rhonchi, no wheezing, no retractions Abdomen: soft, bowel sound present Musculoskeletal: FROM in all four extremities Neurological: cranial nerves II through XII intact, sensation to pain,touch and proprioception grossly normal Skin: no rash, capillary refill <2 seconds Lymphatic: no unusual bruising or bleeding, no purpura Psychiatric: intact recent and remote memory, good judgement and insight, normal mood and affect FMR OB H&P: A/P - Problem List (1) Third trimester at less than 36 weeks Current Visit: Yes Status: Acute Code(s): Z34.93 - ENCNTR FOR SUPRVSN OF NORMAL PREG, UNSP, THIRD TRIMESTER (2) ESBL (extended spectrum beta-lactamase) producing bacteria infection Current Visit: No Status: Acute Code(s): A49.9 - BACTERIAL INFECTION, UNSPECIFIED; Z16.12 - EXTENDED SPECTRUM BETA LACTAMASE (ESBL) RESISTANCE (3) History of delivery Current Visit: No Status: Acute Code(s): Z98.891 - HISTORY OF UTERINE SCAR FROM PREVIOUS SURGERY (4) History of nephrolithiasis Current Visit: No Status: Acute Code(s): Z87.442 - PERSONAL HISTORY OF URINARY CALCULI (5) History of pyelonephritis during Current Visit: No Status: Acute Code(s): Z87.59 - PERSONAL HISTORY OF COMP OF PREG, CHLDBRTH AND THE PUERP; Z87.440 - PERSONAL HISTORY OF URINARY (TRACT) INFECTIONS (6) Polyhydramnios affecting Current Visit: Yes Status: Acute Code(s): O40.9XX0 - POLYHYDRAMNIOS, UNSP TRIMESTER, NOT APPLICABLE OR UNSP Disposition: Pyelonephritis - Hx of recurrent UTI - Urine culture from recent hospitalization 08/24 - Sensitive to bactrim which was started 08/26 - Renal ultrasound yesterday, see HPI - Repeat urine cultures, add culture to yesterdays urine - Maintenance IVF @ 125 mL/hr - Spoke with Dr. Faustin, urologist, stated that he is not able to appropriately evaluate pt during , stated this recurrent infection is likely related to vesicoureteral reflux that may be related to her . Suggested treating the pt with an extended course of abx for 2 weeks - Previous sensativity testing reviewed - will initiate Zosyn abx Hx SAB x2 - D&C x2 Polyhydramnios - Most recent ESPERANZA 38 - Followed by M AMA - followed by [facility] - Patient not on daily ASA Anemia of - Started on oral ferrous sulfate earlier in C/S x3 - Patient at risk for placenta accreta - Followed by MFM Dispo: Admit to Report Clerk/Women's observation. Anticipate LOS 24-48 hours. Discussion: Date/Time: 10/03/19 6318 This H&P was discussed with Dr. Bell and Dr. Lopez who agree with the above documentation and plan. Addendum - Attending - Attending Attestation Date/Time: 10/03/19 6470 I personally evaluated the patient and discussed the management with Dr. Arriaza I agree with the History, Examination, Assessment and Plan documented above with any addition or exceptions noted below. 34 yo at 30.1 wk. Presents as OBT from [facility] with CC of left flank pain. Was see overnight as OBT for concern for pyelo. UA was unremarkable at that time and patient sx resolved. Renal US showed possible consolidation in left kidney that may indicated an early focal pyelonephritis. Patient has been treated twice for pyelo this . Not currently on abx. Went to [facility] today with return of sx. Exam remarkable for left flank pain and CVA tenderness. Patient subjectively febrile. Prior admissions had normal appearing UA that then later grow e.coli and e. fuergusonii. the later was multidrug resistant but sensitive zosyn. Urine culture will be run off urine from last night and collected today. Obs for IV abx. Dr. Arriaza stated he called urology who stated she should be treated like a complicated UTI and they will see her outpatient once she has delivered as no evaluation can occur during . Patient also has dx of polyhydramnios and is followed by MFM. Most recent MFM report shows ESPERANZA of 38 cm. will monitor with q-shift NST during hospital stay. Suspect less than 2 midnights at this time. plan to treat for 2 total weeks with abx then start suppressive therapy until 6 wk PP as this is her third episode.
[2019-10-03 15:11] LABS: #Eosinphils 0.1 thou/uL (0.0-0.7); #Lymphocytes 1.8 thou/uL (1.20-3.40); #Monocytes 0.7 thou/uL (0.11-0.59); #Neutrophils 8.4 thou/uL (1.40-6.50); %Basophils 0.3 % (0.0-1.0); %Eosinophils 0.5 % (0.0-10.0); %Lymphocytes 16.4 % (21.0-51.0); %Neutrophils 76.7 % (42.0-75.0); Hemoglobin 10.7 g/dL (12.0-16.0); Mean Corpuscular HGB CONC 33.7 g/dL (32.0-36.0); Mean Corpuscular Hemoglobin 27.7 pg (27.0-31.0); Mean Corpuscular Volume 82.2 fL (78.0-98.0); Mean Platelet Volume 6.8 fL (7.4-10.4); Platelet Count 303 thou/uL (130-400); RBC Distribution Width 16.2 % (11.5-14.5); Red Blood Cell (RBC) Count 3.85 mill/uL (4.20-5.40); White Blood Cell (WBC) Count 10.9 thou/uL (4.8-10.8)
[2019-10-03 15:26] LABS: ALT (SGPT) 14 U/L (8-55); AST (SGOT) 21 U/L (5-34); Albumin 3.3 g/dL (3.5-5.0); Alkaline Phosphatase 147 U/L (40-110); Anion Gap 13 mmol/L (10-20); BUN (Urea Nitrogen) 6 mg/dL (7.0-18.7); Bilirubin, Total 0.2 mg/dL (0.2-1.2); Calc. Creatinine Clearance 262 mL/min (70-130); Calcium 8.9 mg/dL (7.8-10.44); Carbon Dioxide 20 mmol/L (22-29); Chloride 106 mmol/L (98-107); Estimated GFR-MDRD Greater than 90; Globulin 3.5 g/dL (2.4-3.5); Glucose 78 mg/dL (70-105); Potassium 3.7 mmol/L (3.5-5.1); Protein, Total 6.8 g/dL (6.0-8.3); Sodium 135 mmol/L (136-145)
[2019-10-03] MEDS ORDERED: Ondansetron ODT 4 MG TAB PO PRN (16:29)
[2019-10-03] MEDS: Piperacillin/Tazobactam 3.375 GM in Sodium Chloride 0.9% 100 ML IVPB SCH ×2 (17:27→23:20)
[2019-10-03] MEDS: Acetaminophen 500 MG TAB PO PRN (18:52)
[2019-10-04] MEDS: Lactated Ringer's 1,000 ML IV SCH ×2 (01:56→12:15)
[2019-10-04] MEDS: Piperacillin/Tazobactam 3.375 GM in Sodium Chloride 0.9% 100 ML IVPB SCH ×2 (05:00→09:13)
[2019-10-04] MEDS ORDERED: metFORMIN 500 MG TAB PO SCH ×2 (08:00→17:00)
--- NOTE | 2019-10-04 08:47 | PDOC.FM ---
- Subjective Subjective: Pt reports pain has improved much since starting the ABX. fevers/chills have resolved. No new complaints at this time. - Objective MAR Reviewed: Yes Vital Signs & Weight: Vital Signs (12 hours) Temp 10/03/19 21:10 98.6 F Weight Weight 105.687 kg Result Diagrams: 10/03/19 14:25 10/03/19 14:25 Phys Exam - Physical Examination Constitutional: NAD HEENT: moist MMs, sclera anicteric Neck: no JVD, supple Respiratory: no wheezing, clear to auscultation bilateral Cardiovascular: RRR, no significant murmur Gastrointestinal: soft Musculoskeletal: pulses present slight CVA tenderness on L Neurological: non-focal, normal sensation Psychiatric: normal affect, A&O x 3 Skin: no rash, normal turgor Dx/Plan (1) Pyelonephritis affecting Code(s): O23.00 - INFECTIONS OF KIDNEY IN , UNSPECIFIED TRIMESTER Status: Acute (2) Third trimester at less than 36 weeks Code(s): Z34.93 - ENCNTR FOR SUPRVSN OF NORMAL PREG, UNSP, THIRD TRIMESTER Status: Acute (3) History of pyelonephritis during Code(s): Z87.59 - PERSONAL HISTORY OF COMP OF PREG, CHLDBRTH AND THE PUERP; Z87.440 - PERSONAL HISTORY OF URINARY (TRACT) INFECTIONS Status: Acute - Plan Plan: Pyelonephritis - Hx of recurrent UTI A- Urine culture from recent hospitalization 08/24 was sensitive to bactrim which was started 08/26. Renal ultrasound on 10/03 shows evidence of pyelo. UCx currently showing no growth. Spoke with Dr. Faustin, urologist, stated that he is not able to appropriately evaluate pt during , stated this recurrent infection is likely related to vesicoureteral reflux that may be related to her . Suggested treating the pt with an extended course of abx for 2 weeks P- continue Zosyn while in house -will plan to switch to bactrim -treat for 2 weeks then will likely plan for suppression ABX until delivery. Recommend consideration of Bactrim until 36w then possibly augmentin considering sensitivities GDM A- 2hr GTT: 95, 147, 116. A1C 5.6. metformin started because of LGA and polyhydramnios P- continue metformin 500mg daily -BG fasting and 2hr post prandials Hx SAB x2 -D&C x2 Polyhydramnios -Most recent ESPERANZA 38, followed by [facility] AMA -followed by [facility] Anemia of -Started on oral ferrous sulfate earlier in C/S x3 - Patient at risk for placenta accreta. Followed by [facility] Dispo: possible DC today Addendum - Attending - Attending Attestation Date/Time: 10/04/19 1311 I personally evaluated the patient and discussed the management with Dr. Bell I agree with the History, Examination, Assessment and Plan documented above with any addition or exceptions noted below - Patient feeling better. No pain currently. Tolerating diet. Afebrile VSS A/P: 1) Pyelonephritis with h/o recurrent UTIs - continue current abx. Urine culture negative to date. Will re- evaluate patient later today; if continues to do well will d/c home with po abx for [address] on suppression.
[2019-10-04] MEDS ORDERED: Prenatal Vitamin 1 TAB PO SCH (09:00)
[2019-10-04] MEDS: Acetaminophen 500 MG TAB PO PRN (12:22)
[2019-10-04 12:49] VITALS: BP 107/55; TEMP 99
--- NOTE | 2019-10-04 18:41 | ULT ---
[facility] History: Polyhydramnios Comparison: Ultrasound August 23, 2019 Findings: No fluid index measures 20.5 similar. heart rate documented at 143 bpm. The position is transverse in the placenta is posterior. Impression: Polyhydramnios with amniotic fluid index of 28.5 cm.
--- NOTE | 2019-10-04 20:27 | PDOC.BPN ---
- Brief Progress Note She received IV antibiotics for at least 24 hours. (Last dose at 16:10) Report from prior culture sensitive to Bactrim. Will d/c with Bactrim for 2 weeks and close follow up with [facility]NC recommended. US showed ESPERANZA of 28.5
--- NOTE | 2019-10-08 10:35 | DIS ---
DATE OF ADMISSION: 10/03/2019 DATE OF DISCHARGE: 10/04/2019 ADMITTING ATTENDING: Dr. Jeramy Lopez. DISCHARGE ATTENDING: Dr. Jeramy Lopez. RESIDENT: Johnnie Bell MD CONSULTS: None. PROCEDURES: On 10/04/2019, ultrasound, impression polyhydramnios with amniotic fluid index of 28.5. DISCHARGE MEDICATIONS: 1. Keflex 250 mg p.o. daily. 2. Bactrim Double Strength one tablet p.o. b.i.d. x20 tablets. 3. Metformin 500 mg q.p.m. 4. vitamin. DISCONTINUED MEDICATIONS: None. PRIMARY DIAGNOSIS: Pyelonephritis. SECONDARY DIAGNOSES: History of spontaneous , history of advanced maternal age, polyhydramnios, anemia of , and history of recurrent urinary tract infections. HISTORY OF PRESENT ILLNESS/HOSPITAL COURSE: This is a 34-year-old female, who presented to Labor and Delivery from clinic for concern for pyelonephritis. The patient had been seen earlier today before in triage and had renal ultrasound, which showed evidence for pyelonephritis. The patient has history of recurrent UTIs in . Urology was curb-sided and recommended to treat the patient as if they had complicated cystitis, recommended 2-week course of antibiotics and follow up with them after delivery of baby for further evaluation of recurrent UTIs. The patient received 24 hours of Zosyn and was sent home on p.o. antibiotics x2 weeks with recommendations for suppression therapy afterwards. disposition: stable DC instructions 1 location- home 2 diet- no restrictions 3 activity- as tolerated 4 follow up- with PCP in 1 week Job ID: [id number] MTDD
== END 2019-10-04 20:45 | disposition home health service (06) ==
LOC: L&D/OP 12:51 → L&D 22:00
PROVIDERS: ADMIT Family Medicine; ATTEND Family Medicine
DX: O23.03 Infections of kidney in pregnancy, third trimester (principal); O40.3XX0 Polyhydramnios, third trimester, not applicable or unspecified; O36.63X0 Maternal care for excessive fetal growth, third trimester, not applicable or unspecified; O24.419 Gestational diabetes mellitus in pregnancy, unspecified control; O99.013 Anemia complicating pregnancy, third trimester; D64.9 Anemia, unspecified; Z3A.30 30 weeks gestation of pregnancy; Z98.891 History of uterine scar from previous surgery; Z87.440 Personal history of urinary (tract) infections
CPT/HCPCS: 36415; 36416; 51701; 76770; 76815; 80053; 81001; 83690; 84145; 85025; 87040; 87086; 96361; 96365; 96366; 96372; 96375; 96376; 99283; 99285; A4353; G0378; J0595; J2270; J2405; J2543; J2550; J3490; Q0162

== ENCOUNTER 2019-11-20 05:55 | Inpatient (IN) | payer OTHER ==
--- NOTE | 2019-11-19 21:40 | PDOC.FPROB ---
FMR OB H&P: HPI - History of Present Illness Chief Complaint: scheduled rLTCS Indentification: 34 yo at 37.0 by LMP/16.6 wk sono History of Present Illness: 34 yo at 37.0 by LMP/16.6wk sono here for medical rLTCS x4. Her has been complicarted & been followed by [facility] for AMA, polyhydramnios, uncontrolled A2GDM on 1g metformin, LGA fetus. Serial growth U/S have shown LGA fetus with the most recent measurement of [place] 98% and ESPERANZA 30cm at 35.6 weeks. During this she has not been compliant with her metformin or bringing glucose log which likely contributes to the polyhydramnios and LGA fetus. During this she has been admitted for complicated UTI in which she developed pyelonephritis. Prior to she has history of recurrent bacteriuria since 2016 with ESBL E.coli isolated in one urine culture. Per urology she is on daily keflex for ppx until followup outpatient. No dysuria, fevers, chills, flank pain. Today patient endorses FM, denies CTX, VB, LOF, VD. Primary Care Physician: Dagoberto FMR OB H&P: Current - Care : 7 Para: [id number] Gestational age: 37.0 Due date: 12/11/19 Dating Criteria: 16.6wk sono Total weight gain: 17 lbs Course/Complications: see HPI - OB Labs RH: positive Antibody Screen: negative HIV: negative RPR: negative HepBsAg: negative Rubella: immune Gonorrhea: negative Chlamydia: negative 1 hour gtt: 2hr GTT: 95/147/116 GBS: negative FMR OB H&P: History - Past Medical History PMH: Obesity - OB History OB History: 1. 2 SABs with 2 D&Cs 2004 & 2006 2. Term at 40 wks in 2006 3. 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: Pap 2016-NILM - Surgical History Sx History: rLTCS x3 D&C x2 - Social History Social History: Denies TAD - Family History Family History: HTN, DM2 FMR OB H&P: Medications - Current Home Medications: Medication Instructions Recorded Confirmed Type Vitamin 1 tab PO DAILY tab 04/20/17 10/02/19 Rx Ondansetron [Zofran ODT] 4 mg PO Q6H PRN 5 Days #20 tab 10/03/19 Rx Acetaminophen [Tylenol Extra 1,000 mg PO Q6H PRN tab 10/04/19 Rx Strength] Ondansetron [Zofran ODT] 4 mg PO Q6H PRN #120 tab 10/04/19 Rx Sulfamethoxazole/Trimethoprim 1 tab PO BID #20 tab 10/04/19 Rx [Bactrim DS] metFORMIN [Glucophage] 1,000 mg PO QPM-WM 11/20/19 History Allergies/Adverse Reactions: Allergies Allergy/AdvReac Type Severity Reaction Status Date / Time No Known Allergies Allergy Verified 11/20/19 06:12 FMR OB H&P: ROS - Review of Systems General: denies: fever/chills, weight/appetite/sleep changes Eyes: denies: vision changes, double vision ENT: denies: nasal congestion, rhinorrhea, sore throat Cardiovascular: denies: chest pain, palpitation, edema Respiratory: denies: cough, congestion, shortness of breath Gastrointestinal: denies: abdominal pain, nausea, vomiting Genitourinary (Female): denies: dysuria, hematuria, vaginal discharge, vaginal bleeding, contractions Musculoskeletal: denies: tenderness Neurologic: denies: syncope, seizures Integumentary: denies: itching, rash, lesions Endocrine: denies: cold intolerance, heat intolerance Psychological: denies: depression, anxiety FMR OB H&P: Physical Exam - Physical Exam General: NAD, awake, alert and oriented HEENT: normocephalic and atraumatic, EOMI, MMM, conjunctiva clear, no scleral icterus, grossly normal vision Neck: supple, FROM, trachea midline Heart: RRR, normal S1/S2, no murmurs/rubs/gallops General: CTAB, no respiratory distress, good air movement Abdomen: gravid, non-tender Musculoskeletal: normal gait and station, pulses present, FROM in all four extremities Neurological: sensation to pain,touch and proprioception grossly normal, no tremor, no focal deficit Skin: no rash, good tugor, capillary refill <2 seconds Lymphatic: no unusual bruising or bleeding, no purpura Psychiatric: intact recent and remote memory, good judgement and insight, normal mood and affect FMR OB H&P: A/P - Problem List (1) with 37 or more completed weeks gestation Status: Acute Code(s): [id number] - (2) Gestational diabetes Status: Acute Code(s): O24.419 - GESTATIONAL DIABETES MELLITUS IN , UNSP CONTROL (3) ESBL (extended spectrum beta-lactamase) producing bacteria infection Status: Acute Code(s): A49.9 - BACTERIAL INFECTION, UNSPECIFIED; Z16.12 - EXTENDED SPECTRUM BETA LACTAMASE (ESBL) RESISTANCE (4) History of delivery Status: Acute Code(s): Z98.891 - HISTORY OF UTERINE SCAR FROM PREVIOUS SURGERY (5) Iron deficiency anemia Status: Acute Code(s): D50.9 - IRON DEFICIENCY ANEMIA, UNSPECIFIED (6) Polyhydramnios affecting Status: Acute Code(s): O40.9XX0 - POLYHYDRAMNIOS, UNSP TRIMESTER, NOT APPLICABLE OR UNSP (7) Pyelonephritis affecting Status: Acute Code(s): O23.00 - INFECTIONS OF KIDNEY IN , UNSPECIFIED TRIMESTER Discussion: Date/Time: 11/19/191 34 yo at 37.0 weeks by LMP/16.6 wk son here for scheduled rLTCS x4. #. sIUP at 37 weeks -Plan for rLTCS this AM at 37.0 WGA per [facility] recommendation for polyhydramnios and LGA fetus -Cefazolin 2g -FHT: Cat I -Vertex position -PP contraception: vasectomy #. AMA -Declined genetic screening, low risk anatomy sono #. Grandmultiparity -Increased risk for PPH, will have uterotonics available during surgery -Will type & cross 2 PRBCs #. LTCS x3 -Placenta posterior #. Hx of SAB x2 with D&C x2 -Inc risk for occult accreta even with posterior placenta due to D&C -Will type & cross 2 PRBCs #. Anemia of -Last Hb stable at 11.1 on PNV and inc. dietary intake of iron -Repeat CBC with admission bloodwork #. A2GDM, uncontrolled -Took 1g metformin last night, POC this AM #. LGA fetus -[facility] growth sono at 35.6 wks showed 98%, 3509g, ESPERANZA = 30 #. Polyhydramnios -Likely 2/2 uncontrolled glucose -See plan above #. Obesity -BMI 35, will work counselor on lifestyle modification #. Complicated UTI during -Hospitalized September for pyelonephritis -On ppx keflex, resume postoperatively with outpt urology f/u #. Left ovarian cyst -Monitored by MFM -Pt with intermittent pain this -Stable today This H&P was discussed with Dr. Lopez who agrees with the above documentation and plan. Addendum - Attending - Attending Attestation Date/Time: 11/20/19 5824 I personally evaluated the patient and discussed the management with Dr. Arenas I agree with the History, Examination, Assessment and Plan documented above with any addition or exceptions noted below. presents for rLTCS with prior x3. Known left ovarian cyst. [facility] recommends rLTCS at 37 wk due to uncontrolled GDMA2 and LGA infant. R/B/A explained. Will proceed with rLTCS.
[~2019-11-20 05:55] MED LIST: Bicitra 30 ML UDCUP PO SCH; CEFAZOLIN 2 GM in Premix Bag 1 BAG IVPB SCH; Ondansetron PF 4 MG/2 ML Vial IVP PRN; Promethazine HCl 25 MG/ML VIAL IM PRN; hydrALAZINE 20 MG/ML VIAL SLOW IVP PRN
[2019-11-20 06:19] VITALS: BMI 37.9
[2019-11-20] MEDS: Lactated Ringer's 1,000 ML IV SCH (06:27)
[2019-11-20] MEDS ORDERED: Famotidine/PF 20 mg/2ml Vial ONE (06:31)
[2019-11-20] MEDS ORDERED: Oxytocin 10 UNITS/ML VIAL ONE (06:36)
[2019-11-20] MEDS ORDERED: MORPHINE 5 MG/10 ML PF VIAL ONE (06:36)
[2019-11-20 06:40] LABS: Hemoglobin 11.1 g/dL (12.0-16.0); Mean Corpuscular HGB CONC 34.7 g/dL (32.0-36.0); Mean Corpuscular Hemoglobin 28.1 pg (27.0-31.0); Mean Platelet Volume 7.3 fL (7.4-10.4); Platelet Count 251 thou/uL (130-400); RBC Distribution Width 15.3 % (11.5-14.5); Red Blood Cell (RBC) Count 3.96 mill/uL (4.20-5.40); White Blood Cell (WBC) Count 11.3 thou/uL (4.8-10.8)
[2019-11-20 07:21] LABS: Syphilis Antibody Nonreactive (Nonreactive); Syphilis Antibody Index 0.04 S/CO (<1.00 Non-Reactive)
[2019-11-20 07:32] LABS: HBSAg Index 0.18 S/CO (0-0.99); Hep B Surf Ag Non-Reactive S/CO (NonReactive)
[2019-11-20] MEDS ORDERED: L&D-Morphine 4 MG/ML VIAL SLOW IVP PRN (08:15)
[2019-11-20] MEDS ORDERED: Ondansetron HCl/PF 4 MG/2 ML Vial IVP PRN (08:15)
[2019-11-20] MEDS ORDERED: HYDROmorphone 2 MG/ML VIAL SLOW IVP PRN (08:15)
[2019-11-20] MEDS ORDERED: Naloxone HCl 0.4 mg/ml Vial IV PRN (08:15)
[2019-11-20] MEDS ORDERED: Ondansetron PF 4 MG/2 ML Vial IVP PRN (08:15)
[2019-11-20] MEDS ORDERED: Communication Order-Pharmacy FS SCH (08:15)
[2019-11-20] MEDS ORDERED: Promethazine HCl 25 MG/ML VIAL IM PRN (08:15)
[2019-11-20] MEDS ORDERED: Naloxone HCl 0.4 mg/ml Vial IVP PRN ×2 (08:15)
[2019-11-20] MEDS ORDERED: Promethazine HCl 25 MG SUPP PR PRN (08:15)
[2019-11-20] MEDS ORDERED: Ketorolac Tromethamine 30 MG/ML VIAL ONE (09:13)
[2019-11-20] MEDS ORDERED: Ondansetron PF 4 MG/2 ML Vial ONE (09:13)
[2019-11-20] MEDS ORDERED: PHENYLEPHRINE-NS 100 MCG/ML 10 ML SYRINGE ONE (09:13)
[2019-11-20] MEDS ORDERED: Metoclopramide HCl 10 MG/2 ML VIAL ONE (09:13)
[2019-11-20] MEDS ORDERED: Dexamethasone 20 MG/5 ML VIAL ONE (09:13)
[2019-11-20] MEDS ORDERED: NS / Oxytocin 40 units/1000ml 1,000 ML ONE (09:18)
[2019-11-20] MEDS ORDERED: Meperidine HCl/PF 25 MG/ML VIAL ONE ×2 (09:43→10:52)
[2019-11-20] MEDS: Meperidine HCl/PF 25 MG/ML VIAL SLOW IVP PRN ×2 (09:47→10:55)
[2019-11-20] MEDS ORDERED: NS / Oxytocin 40 units/1000ml 1,000 ML IV SCH (11:29)
[2019-11-20] MEDS ORDERED: hydrALAZINE 20 MG/ML VIAL SLOW IVP PRN (11:29)
--- NOTE | 2019-11-20 12:15 | OP ---
DATE OF PROCEDURE: 11/20/2019 RESIDENT SURGEONS: Lila Arenas, PGY-2 and Yi Jamison, PGY-2 PROCEDURES PERFORMED: 1. Repeat low-transverse section x4. 2. Cystotomy of left ovarian cyst x3. PREOPERATIVE DIAGNOSES: 1. Term intrauterine at 37 weeks. 2. Prior low-transverse x3. 3. AMA. 4. Grand multiparity. 5. History of SAB x2, with dilatation and curettage x2. 6. Anemia . 7. A2 gestational diabetes mellitus, uncontrolled. 8. LGA fetus. 9. Polyhydramnios. 10. Obesity. 11. Left ovarian cyst. 12. Complicated urinary tract infection during . POSTOPERATIVE DIAGNOSES: 1. Term intrauterine at 37 weeks. 2. Prior low-transverse x3. 3. AMA. 4. Grand multiparity. 5. History of SAB x2, with dilatation and curettage x2. 6. Anemia . 7. A2 gestational diabetes mellitus, uncontrolled. 8. LGA fetus. 9. Polyhydramnios. 10. Obesity. 11. Left ovarian cyst, status post cystotomy. 12. Complicated urinary tract infection during . ANESTHESIA: Spinal. INDICATIONS: The patient is a 34-year-old, G7, P4-0-2-4 at 37 and 0 weeks, who presented for medical scheduled . PROCEDURE IN DETAIL: After risks, benefits, and alternatives were explained to the patient, she gave informed consent. Preoperative antibiotics included cefazolin 2 g IV. The patient was taken to the operating room, and spinal anesthesia was initiated. She was placed in the supine position with a leftward tilt and prepped and draped in the usual sterile fashion. A Pfannenstiel incision was made with a scalpel and carried down to the level of fascia, which was sharply nicked. The fascial cut was extended bilaterally with Barraza scissors. The inferior and superior edges of the cut fascial edges were elevated with Sean clamps, and the underlying rectus muscles were sharply and bluntly dissected free. The recti were divided digitally and retracted medially. The peritoneum was entered sharply and bluntly and then retracted medially. Jose Guadalupe was placed after cavity was found to be free of adhesions. A low transverse score was made with a scalpel, and the uterus was entered in the midline with the scalpel. Clear fluid was seen. Hysterotomy was extended manually. The was noted to be vertex and easily delivered by fundal pressure. Mouth and nares were bulb suctioned. Delayed cord clamp and then cut. Grossly normal male infant handed to the nursing team. Cord blood was obtained. The placenta was manually extracted, found to be intact with 3-vessel cord and discarded. Two left ovarian and one right ovarian cysts were noted. After consulting with [employer] specialist, decision was made to do a cystotomy, in which fluid was drained. No further bleeding. Uterus was externalized, and the endometrium was curetted with a dry lap. Bladder blade was replaced, and the uterus was closed with a running locking 1 Monocryl CTX suture followed by a horizontal mattress imbricating suture. Following this, hemostasis was noted. Abdomen was found to be free of blood and clots. Uterus was internalized, and the hysterotomy was again noted to be hemostatic. The fascia was closed with a running nonlocking 0 PDS suture. The subcutaneous tissue was irrigated, and a 3-0 Monocryl was used to close initial subcutaneous pocket that was originally made from incising to low. The subcutaneous tissue was closed with 3-0 Monocryl in a running nonlocking fashion. The skin was approximated with a 4-0 Monocryl and Dermabond applied. All counts were correct. The patient tolerated the procedure well, was taken to the recovery room in a stable position. QBL: 546 mL. COMPLICATIONS: None. SPECIMENS: Cord blood sent to lab for blood type. FINDINGS: Grossly normal male with Apgars of 8 and 9 that did proceed to NICU after starting having grunting and requiring PPV. Grossly normal placenta, 3-vessel cord discarded. DRAINS: Cespedes to gravity, drained clear urine. Job ID: [id number]
--- NOTE | 2019-11-20 13:52 | PDOC.EVN ---
Event Note - Event Note Event Note: 4h PP Progress Note: 34yo delivered via RLTCS at 37.0w on 11/20 at 0806 for LGA fetus, polyhydramnios an A2GDM. Pt doing well, resting comfortably. Has mild OLVERA but otherwise pain is well controlled. Bleeding per nursing and patient is minimal. QBL including recovery time documented is 776. UOP >100ml/hr per documentation. Pt was able to see baby in NICU prior to transfer to . VS: BP 122/71, P 91 Exam: Gen: AOx3, NAD Abd: fundus firm at umbilicus, appropriately tender, vaginal bleeding is minimal : muller in place with yellow clear urine, 250 in muller bag Ext: mild LE edema Continue routine PP care. Advance diet as tolerated. Ambulate with assist. [place], Ibuprofen for pain control. ACHS accuchecks.
[2019-11-20] MEDS: Ketorolac Tromethamine 30 MG/ML VIAL IVP PRN ×2 (14:16→20:13)
[2019-11-20] MEDS ORDERED: HYDROcodone/Acetaminophen 5/325 mg Tablet PO PRN (14:49)
[2019-11-20] MEDS: HYDROcodone/Acetaminophen 5/325 mg Tablet PO PRN ×2 (15:46→20:12)
[2019-11-20] MEDS: Docusate Calcium (SURFAK) 240 MG CAP PO SCH (21:20)
[2019-11-21] MEDS: HYDROcodone/Acetaminophen 5/325 mg Tablet PO PRN ×5 (00:54→20:22)
[2019-11-21] MEDS: Simethicone Chewable 80 MG TAB PO PRN ×3 (00:55→11:35)
[2019-11-21] MEDS: Lactated Ringer's 1,000 ML IV SCH ×4 (01:00→13:47)
[2019-11-21] MEDS: diphenhydrAMINE 50 MG/ML VIAL IVP PRN ×2 (01:02→11:55)
[2019-11-21 05:56] LABS: Hemoglobin 8.7 g/dL (12.0-16.0); Mean Corpuscular HGB CONC 33.5 g/dL (32.0-36.0); Mean Corpuscular Hemoglobin 27.4 pg (27.0-31.0); Mean Corpuscular Volume 81.9 fL (78.0-98.0); Mean Platelet Volume 7.1 fL (7.4-10.4); Platelet Count 211 thou/uL (130-400); RBC Distribution Width 15.2 % (11.5-14.5); Red Blood Cell (RBC) Count 3.18 mill/uL (4.20-5.40); White Blood Cell (WBC) Count 10.7 thou/uL (4.8-10.8)
[2019-11-21] MEDS: Ibuprofen 800 MG TAB PO SCH ×3 (06:11→21:43)
--- NOTE | 2019-11-21 07:29 | PDOC.PP ---
Post Progress Note Post Day #: 1 Subjective: patient doing well. pain controlled with medication regimen. no concerns at this times. yesterday did have quite a bit of postop bleeding-~700cc. No weakness, lightheadedness, palpitations PO intake tolerated: yes Flatus: yes Ambulation: no Vital Signs (12 hours) Temp Pulse Resp BP Pulse Ox 11/21/19 05:50 98 F 68 20 118/57 L 98 11/21/19 01:15 97.0 F L 76 16 112/65 99 11/20/19 20:24 98 F 85 20 112/58 L 96 11/20/19 20:10 96 Weight Weight 103.419 kg - Physical Examination General: NAD Respiratory: non-labored breathing Abdominal: + bowel sounds, appropriately TTP Skin: CS incision dry & intact, no rash Neurological: no gross focal deficits Psychiatric: A&Ox3, normal affect Result Diagrams: 11/21/19 05:33 Additional Labs: Post Labs Blood Type A POSITIVE 11/20/19 06:22 Hep Bs Antigen Non-Reactive S/CO (NonReactive) 11/20/19 06:22 (1) with 37 or more completed weeks gestation Code(s): [id number] - Status: Acute (2) Gestational diabetes Code(s): O24.419 - GESTATIONAL DIABETES MELLITUS IN , UNSP CONTROL Status: Acute (3) ESBL (extended spectrum beta-lactamase) producing bacteria infection Code(s): A49.9 - BACTERIAL INFECTION, UNSPECIFIED; Z16.12 - EXTENDED SPECTRUM BETA LACTAMASE (ESBL) RESISTANCE Status: Acute (4) History of delivery Code(s): Z98.891 - HISTORY OF UTERINE SCAR FROM PREVIOUS SURGERY Status: Acute (5) Iron deficiency anemia Code(s): D50.9 - IRON DEFICIENCY ANEMIA, UNSPECIFIED Status: Acute (6) Polyhydramnios affecting Code(s): O40.9XX0 - POLYHYDRAMNIOS, UNSP TRIMESTER, NOT APPLICABLE OR UNSP Status: Acute (7) Pyelonephritis affecting Code(s): O23.00 - INFECTIONS OF KIDNEY IN , UNSPECIFIED TRIMESTER Status: Acute - Assessment/Plan 34 yo s/p rLTCS x4, postop day 1 1. S/P rLTCS x4, postop day 1 -Recovering well, incision dry and intact -Pain controlled on current regimen -Continue care, encouraged ambulation today -PP contraception: Will think about it 2. Mixed anemia 2/2 iron def and acute blood loss -Hb 8.7 this AM, pt asx -Start BID iron w/ stool softener -Rpt H/H in AM or if continues to significantly bleed 3. A2GDM -Accuchecks within range -Will need 6week PP 2hr OGTT 4. Hx of nephrolithiasis & pyelonephrtiis -hold abx, clinically monitor -outpt urology visit 5. Obesity -BMI 35, will pet counselor on lifestyle modification Discussed w/ Dr. Lopez Dispo: >2 midnights Addendum - Attending - Attending Attestation Date/Time: 11/21/19 1035 I personally evaluated the patient and discussed the management with Dr. Arenas. I agree with the History, Examination, Assessment and Plan documented above with any addition or exceptions noted below. Pain controlled. likely d/c tomorrow.
[2019-11-21] MEDS: Ferrous Sulfate 325 MG TAB PO SCH ×2 (08:58→20:23)
[2019-11-21] MEDS: Docusate Calcium (SURFAK) 240 MG CAP PO SCH ×2 (08:58→21:43)
[2019-11-21] MEDS ORDERED: Adacel (T-DAP) 0.5 ML SYRINGE IM ONE (09:00)
[2019-11-21] MEDS ORDERED: Lanolin Ointment 7 GM TUBE TOP PRN (12:16)
[2019-11-22] MEDS: Lactated Ringer's 1,000 ML IV SCH ×2 (01:02→05:52)
[2019-11-22 05:37] LABS: Hemoglobin 8.6 g/dL (12.0-16.0)
[2019-11-22] MEDS: Ibuprofen 800 MG TAB PO SCH ×2 (05:42→13:23)
[2019-11-22] MEDS: HYDROcodone/Acetaminophen 5/325 mg Tablet PO PRN ×3 (05:42→12:37)
--- NOTE | 2019-11-22 07:20 | PDOC.PP ---
Post Progress Note Post Day #: 2 Subjective: NAEO. Doing well. Some lightheadedness with walking but no symptoms otherwise. Pain controlled. PO intake tolerated: yes Flatus: yes Ambulation: yes Vital Signs (12 hours) Temp Pulse Resp BP 11/22/19 00:25 98.6 F 92 18 105/52 L Weight Weight 103.419 kg - Physical Examination General: NAD Respiratory: clear to auscultation bilaterally, non-labored breathing Abdominal: appropriately TTP Skin: CS incision dry & intact, no rash Neurological: no gross focal deficits Psychiatric: A&Ox3, normal affect Result Diagrams: 11/22/19 05:28 Additional Labs: Post Labs Blood Type A POSITIVE 11/20/19 06:22 Hep Bs Antigen Non-Reactive S/CO (NonReactive) 11/20/19 06:22 (1) with 37 or more completed weeks gestation Code(s): [id number] - Status: Acute (2) Gestational diabetes Code(s): O24.419 - GESTATIONAL DIABETES MELLITUS IN , UNSP CONTROL Status: Acute (3) ESBL (extended spectrum beta-lactamase) producing bacteria infection Code(s): A49.9 - BACTERIAL INFECTION, UNSPECIFIED; Z16.12 - EXTENDED SPECTRUM BETA LACTAMASE (ESBL) RESISTANCE Status: Acute (4) History of delivery Code(s): Z98.891 - HISTORY OF UTERINE SCAR FROM PREVIOUS SURGERY Status: Acute (5) Iron deficiency anemia Code(s): D50.9 - IRON DEFICIENCY ANEMIA, UNSPECIFIED Status: Acute (6) Polyhydramnios affecting Code(s): O40.9XX0 - POLYHYDRAMNIOS, UNSP TRIMESTER, NOT APPLICABLE OR UNSP Status: Acute (7) Pyelonephritis affecting Code(s): O23.00 - INFECTIONS OF KIDNEY IN , UNSPECIFIED TRIMESTER Status: Acute - Assessment/Plan 34 yo s/p rLTCS x4, postop day 2 1. S/P rLTCS x4, postop day 2 -Recovering well, incision dry and intact -Pain controlled on current regimen -Continue care, encouraged ambulation today -PP contraception: Will think about it 2. Mixed anemia 2/2 iron def and acute blood loss -Hb 8.7 -> 8.6, pt sxatic wtih amublation. Encouraged PO hydration. -Start BID iron w/ stool softener -Rpt H/H in AM 3. A2GDM -Accuchecks within range -Will need 6week PP 2hr OGTT 4. Hx of nephrolithiasis & pyelonephrtiis -hold abx, clinically monitor -outpt urology visit 5. 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 Lopez Dispo: >2 midnights Addendum - Attending - Attending Attestation Date/Time: 11/22/19 2003 I personally evaluated the patient and discussed the management with Dr. Arenas I agree with the History, Examination, Assessment and Plan documented above with any addition or exceptions noted below. D/C to B&B today. norco rx left on chart.
[2019-11-22 07:51] VITALS: TEMP 98.7
[2019-11-22] MEDS: Ferrous Sulfate 325 MG TAB PO SCH (08:24)
[2019-11-22] MEDS: Docusate Calcium (SURFAK) 240 MG CAP PO SCH (08:26)
[2019-11-22 12:37] VITALS: BP 124/65
[2019-11-25] MEDS ORDERED: Ibuprofen 800 MG TAB PO SCH (22:00)
== END 2019-11-22 13:10 | disposition home or self-care (01) | DRG 786 ==
LOC: L&D 05:55 → 3SE 13:04
PROVIDERS: ADMIT Family Medicine; ATTEND Family Medicine
PROC: 10D00Z1 Extraction of Products of Conception, Low, Open Approach (ICD-10-PCS; principal; 2019-11-20)
DX: O24.425 Gestational diabetes mellitus in childbirth, controlled by oral hypoglycemic drugs (principal); O75.3 Other infection during labor; D62 Acute posthemorrhagic anemia; O40.3XX0 Polyhydramnios, third trimester, not applicable or unspecified; O36.63X0 Maternal care for excessive fetal growth, third trimester, not applicable or unspecified; O99.214 Obesity complicating childbirth; E66.9 Obesity, unspecified; O99.02 Anemia complicating childbirth; D50.9 Iron deficiency anemia, unspecified; O34.83 Maternal care for other abnormalities of pelvic organs, third trimester; N83.202 Unspecified ovarian cyst, left side; O34.211 Maternal care for low transverse scar from previous cesarean delivery; Z3A.37 37 weeks gestation of pregnancy; Z37.0 Single live birth
CPT/HCPCS: 36415; 36416; 85014; 85018; 85027; 86780; 86850; 86900; 86901; 87340; J0690; J1100; J1200; J1885; J2175; J2274; J2405; J2590; J2765; S0028

== ENCOUNTER 2021-10-21 07:35 | Inpatient (IN) | payer OTHER ==
[2021-10-21] MEDS ORDERED: Ondansetron PF 4 MG/2 ML Vial ONE (07:54)
[2021-10-21 08:24] LABS: #Lymphocytes 2.5 thou/uL (1.20-3.40); #Monocytes 0.5 thou/uL (0.11-0.59); #Neutrophils 5.7 thou/uL (1.40-6.50); %Basophils 0.3 % (0.0-1.0); %Eosinophils 0.5 % (0.0-10.0); %Lymphocytes 28.6 % (21.0-51.0); %Monocytes 5.5 % (0.0-10.0); %Neutrophils 65.1 % (42.0-75.0); Hemoglobin 12.1 g/dL (12.0-16.0); Mean Corpuscular HGB CONC 32.1 g/dL (32.0-36.0); Mean Corpuscular Hemoglobin 25.4 pg (27.0-31.0); Mean Corpuscular Volume 79.2 fL (78.0-98.0); Mean Platelet Volume 7.5 fL (7.4-10.4); Platelet Count 263 thou/uL (130-400); RBC Distribution Width 14.3 % (11.5-14.5); Red Blood Cell (RBC) Count 4.76 mill/uL (4.20-5.40); White Blood Cell (WBC) Count 8.7 thou/uL (4.8-10.8)
[2021-10-21 08:33] LABS: INR-International Normal Ratio 1.1; PTT 29.4 sec (22.9-36.1); Prothrombin Time 13.9 sec (12.0-14.7)
[2021-10-21 08:37] LABS: BHCG - Serum Negative (NEGATIVE); Pregs Control Background? CLEAR/WHITE (CLR/WHITE); Pregs Control Bar Appear? YES (CONTROL BAR)
[2021-10-21 08:47] LABS: ALT (SGPT) 95 U/L (8-55); AST (SGOT) 65 U/L (5-34); Albumin 3.7 g/dL (3.5-5.0); Alkaline Phosphatase 102 U/L (40-110); Anion Gap 15 mmol/L (10-20); BUN (Urea Nitrogen) 11 mg/dL (7.0-18.7); Bilirubin, Total 0.7 mg/dL (0.2-1.2); Calc. Creatinine Clearance 0 mL/min (70-130); Calcium 8.7 mg/dL (7.8-10.44); Carbon Dioxide 18 mmol/L (22-29); Chloride 105 mmol/L (98-107); Globulin 3.9 g/dL (2.4-3.5); Glucose 200 mg/dL (70-105); Lipase 30 U/L (8-78); Potassium 3.7 mmol/L (3.5-5.1); Protein, Total 7.6 g/dL (6.0-8.3); Sodium 134 mmol/L (136-145)
[2021-10-21 09:35] LABS: Bacteria/HPF None Seen HPF (None Seen); Bilirubin Negative (Negative); Blood, Urine 1+ (Negative); Clarity Turbid (Clear); Glucose, Urine (Dipstick) Normal (Negative); Ketone, Urine Negative (Negative); Leukocyte 75 Leu/uL (Negative); Nitrite Negative (Negative); Protein, Urine (Dipstick) Negative (Neg-Trace); RBC/HPF 0-3 HPF (0-3); Specific Gravity, Urine 1.029 (1.002-1.036); Urobilinogen Normal mg/dL (Less than 2)
[2021-10-21 09:43] LABS: Amphetamine Not Detected (NotDetected); Barbiturates Screen Not Detected (NotDetected); Benzodiazepine Screen Not Detected (NotDetected); Cocaine Metabolite Screen Not Detected (NotDetected); Methadone Not Detected (NotDetected); Methamphetamine Not Detected (NotDetected); Opiate Screen Not Detected (NotDetected); Oxycodone Screen Not Detected (NotDetected); Phencyclidine (PCP) Not Detected (NotDetected); THC/Cannabinoid Screen Not Detected (NotDetected); Tricyclic Screen Not Detected (NotDetected)
[2021-10-21] MEDS ORDERED: Ibuprofen 200 MG TAB ONE ×2 (10:06→10:11)
[2021-10-21 10:09] LABS: Acetaminophen Less than 6.0 mcg/mL (10.0-30.0); Alcohol Less than 10 mg/dL (Less than 10); Salicylate Less than 8.0 mg/dL (15.0-30.0)
[2021-10-21] MEDS ORDERED: Cefepime 2 GM VIAL ONE (10:30)
[2021-10-21 10:38] LABS: Actual Bicarbonate (HCO3v) 18 mEq/L (22-28); Analyzer IN Cardio ER; Base Excess -4.9 mEq/L (-2.0 to +3.0); Calcium, Ionized (venous) 1.02 mmol/L (1.16-1.32); Chloride (VBG) 108 mmol/L (98-106); Hemoglobin (Hb) 10.8 g/dL (11.7-15.5); Potassium (VBG) 3.32 mmol/L (3.70-5.30); Sodium 134.1 mmol/L (133-146); pH (venous) 7.45 (7.32-7.43)
[2021-10-21] MEDS ORDERED: Vancomycin 1 GM/200 ML BAG ONE ×2 (10:52→11:57)
[2021-10-21] MEDS ORDERED: HumaLOG 300 UNITS/3 ML VIAL SC PRN (12:13)
[2021-10-21] MEDS ORDERED: Calcium Carbonate 500 MG ChewTAB PO PRN (12:13)
[2021-10-21] MEDS ORDERED: Dextrose 50% Abboject 50 ML SYRINGE SLOW IVP PRN (12:13)
[2021-10-21] MEDS ORDERED: Dextrose 5% in Water 1,000 ML IV PRN (12:13)
[2021-10-21] MEDS ORDERED: Senokot S 8.6-50 MG TAB PO PRN (12:13)
[2021-10-21] MEDS ORDERED: Ondansetron PF 4 MG/2 ML Vial IVP PRN (12:13)
[2021-10-21 12:28] LABS: SARS-CoV-2 NAA Rapid Test Not Detected (NotDetected)
[2021-10-21 12:51] VITALS: BMI 36.1
[2021-10-21 13:37] LABS: #Basophils 0.1 thou/uL (0.0-0.2); #Monocytes 0.7 thou/uL (0.11-0.59); %Basophils 0.6 % (0.0-1.0); %Eosinophils 0.1 % (0.0-10.0); %Lymphocytes 8.9 % (21.0-51.0); %Monocytes 6.2 % (0.0-10.0); %Neutrophils 84.2 % (42.0-75.0); Mean Corpuscular HGB CONC 32.5 g/dL (32.0-36.0); Mean Corpuscular Hemoglobin 26.4 pg (27.0-31.0); Mean Corpuscular Volume 81.2 fL (78.0-98.0); Mean Platelet Volume 7.1 fL (7.4-10.4); Platelet Count 220 thou/uL (130-400); RBC Distribution Width 14.3 % (11.5-14.5); White Blood Cell (WBC) Count 10.7 thou/uL (4.8-10.8)
[2021-10-21] MEDS: HYDROcodone/Acetaminophen 5/325 mg Tablet PO PRN ×2 (13:44→17:47)
[2021-10-21] MEDS: Sodium Chloride 0.9% 1,000 ML IV SCH (13:44)
[2021-10-21 13:59] LABS: ALT (SGPT) 97 U/L (8-55); AST (SGOT) 97 U/L (5-34); Albumin 3.1 g/dL (3.5-5.0); Alkaline Phosphatase 79 U/L (40-110); Anion Gap 10 mmol/L (10-20); BUN (Urea Nitrogen) 8 mg/dL (7.0-18.7); Bilirubin, Total 0.5 mg/dL (0.2-1.2); Calc. Creatinine Clearance 184 mL/min (70-130); Calcium 7.7 mg/dL (7.8-10.44); Carbon Dioxide 17 mmol/L (22-29); Chloride 111 mmol/L (98-107); Globulin 3.1 g/dL (2.4-3.5); Glucose 183 mg/dL (70-105); Potassium 3.4 mmol/L (3.5-5.1); Protein, Total 6.2 g/dL (6.0-8.3); Sodium 135 mmol/L (136-145)
[2021-10-21] MEDS ORDERED: Vancomycin HCl 1 GM in Sodium Chloride 0.9% 250 ML 300 ML IVPB SCH (21:00)
[2021-10-21] MEDS: Cefepime 1 GM in Sodium Chloride 0.9% 100 ML IVPB SCH (21:12)
[2021-10-21] MEDS: Acetaminophen 325 MG TAB PO PRN (21:13)
[2021-10-21] MEDS ORDERED: Vancomycin HCl 1.25 GM in Sodium Chloride 0.9% 250 ML 250 ML IVPB SCH (23:00)
[2021-10-22] MEDS: HYDROcodone/Acetaminophen 5/325 mg Tablet PO PRN ×4 (00:48→15:39)
[2021-10-22] MEDS: Sodium Chloride 0.9% 1,000 ML IV SCH ×3 (00:49→15:40)
[2021-10-22 06:21] LABS: ALT (SGPT) 101 U/L (8-55); AST (SGOT) 79 U/L (5-34); Albumin 3.3 g/dL (3.5-5.0); Alkaline Phosphatase 77 U/L (40-110); Anion Gap 14 mmol/L (10-20); BUN (Urea Nitrogen) 7 mg/dL (7.0-18.7); Bilirubin, Total 0.4 mg/dL (0.2-1.2); Calc. Creatinine Clearance 203 mL/min (70-130); Calcium 8.1 mg/dL (7.8-10.44); Carbon Dioxide 17 mmol/L (22-29); Chloride 108 mmol/L (98-107); Globulin 3.4 g/dL (2.4-3.5); Glucose 85 mg/dL (70-105); Potassium 3.6 mmol/L (3.5-5.1); Protein, Total 6.7 g/dL (6.0-8.3); Sodium 135 mmol/L (136-145)
[2021-10-22 06:32] LABS: Hemoglobin 10.3 g/dL (12.0-16.0); Mean Corpuscular HGB CONC 32.3 g/dL (32.0-36.0); Mean Corpuscular Hemoglobin 26.1 pg (27.0-31.0); Mean Corpuscular Volume 80.8 fL (78.0-98.0); Mean Platelet Volume 8.3 fL (7.4-10.4); Platelet Count 176 thou/uL (130-400); RBC Distribution Width 14.4 % (11.5-14.5); Red Blood Cell (RBC) Count 3.93 mill/uL (4.20-5.40); White Blood Cell (WBC) Count 7.9 thou/uL (4.8-10.8)
[2021-10-22 06:40] LABS: Band 17 % (5-11); Eosinophils 1 % (0-10); Lymphocytes 20 % (21-51); MDiff Complete? YES; Monocytes 6 % (0-10); Neutrophil 56 % (42-75); Platelet Morphology Comment Appears Adequate; RBC Morphology Normal
[2021-10-22] MEDS: Guaifenesin DM 100-10/5 ML UDCUP PO PRN ×3 (06:42→20:59)
[2021-10-22] MEDS: Enoxaparin Sodium 40 MG/0.4 ML SYRINGE SC SCH (07:44)
[2021-10-22] MEDS: Cefepime 1 GM in Sodium Chloride 0.9% 100 ML IVPB SCH ×2 (07:44→21:01)
[2021-10-22] MEDS ORDERED: FLU VACC QS2021-22(6MOS UP)/PF 60 MCG/0.5 ML SYRINGE IM ONE (09:00)
[2021-10-22] MEDS ORDERED: Diphenoxylate HCl/Atropine Tablet PO PRN (15:58)
[2021-10-23] MEDS: HYDROcodone/Acetaminophen 5/325 mg Tablet PO PRN ×3 (00:21→15:07)
[2021-10-23] MEDS: Sodium Chloride 0.9% 1,000 ML IV SCH (00:34)
[2021-10-23 06:25] LABS: ALT (SGPT) 71 U/L (8-55); AST (SGOT) 42 U/L (5-34); Albumin 3.1 g/dL (3.5-5.0); Alkaline Phosphatase 70 U/L (40-110); Anion Gap 11 mmol/L (10-20); BUN (Urea Nitrogen) 4 mg/dL (7.0-18.7); Bilirubin, Total 0.3 mg/dL (0.2-1.2); Calc. Creatinine Clearance 196 mL/min (70-130); Calcium 8.3 mg/dL (7.8-10.44); Carbon Dioxide 23 mmol/L (22-29); Chloride 106 mmol/L (98-107); Globulin 3.3 g/dL (2.4-3.5); Glucose 111 mg/dL (70-105); Potassium 3.5 mmol/L (3.5-5.1); Protein, Total 6.4 g/dL (6.0-8.3); Sodium 136 mmol/L (136-145)
[2021-10-23 06:57] LABS: Band 1 % (5-11); Eosinophils 1 % (0-10); Hemoglobin 9.7 g/dL (12.0-16.0); Lymphocytes 24 % (21-51); MDiff Complete? YES; Mean Corpuscular HGB CONC 32.6 g/dL (32.0-36.0); Mean Corpuscular Hemoglobin 26.1 pg (27.0-31.0); Mean Corpuscular Volume 80.2 fL (78.0-98.0); Mean Platelet Volume 7.2 fL (7.4-10.4); Monocytes 11 % (0-10); Neutrophil 61 % (42-75); Platelet Count 239 thou/uL (130-400); Platelet Morphology Comment Appears Adequate; RBC Distribution Width 14.2 % (11.5-14.5); RBC Morphology Normal; White Blood Cell (WBC) Count 6.2 thou/uL (4.8-10.8)
[2021-10-23] MEDS: Enoxaparin Sodium 40 MG/0.4 ML SYRINGE SC SCH (07:57)
[2021-10-23] MEDS ORDERED: Iopamidol-370 76% 500 ML 1 ML ONE (10:30)
[2021-10-23] MEDS: Acetaminophen 325 MG TAB PO PRN (11:23)
[2021-10-24] MEDS: HYDROcodone/Acetaminophen 5/325 mg Tablet PO PRN (00:25)
[2021-10-24] MEDS: Guaifenesin DM 100-10/5 ML UDCUP PO PRN (00:30)
[2021-10-24 00:35] VITALS: TEMP 97.7
[2021-10-24 06:53] LABS: ALT (SGPT) 77 U/L (8-55); AST (SGOT) 58 U/L (5-34); Albumin 3.3 g/dL (3.5-5.0); Alkaline Phosphatase 77 U/L (40-110); Anion Gap 11 mmol/L (10-20); BUN (Urea Nitrogen) 7 mg/dL (7.0-18.7); Bilirubin, Total 0.2 mg/dL (0.2-1.2); Calc. Creatinine Clearance 200 mL/min (70-130); Carbon Dioxide 24 mmol/L (22-29); Chloride 105 mmol/L (98-107); Globulin 3.3 g/dL (2.4-3.5); Glucose 104 mg/dL (70-105); Potassium 3.5 mmol/L (3.5-5.1); Protein, Total 6.6 g/dL (6.0-8.3); Sodium 136 mmol/L (136-145)
[2021-10-24 07:22] LABS: Hemoglobin 10.3 g/dL (12.0-16.0); Mean Corpuscular Hemoglobin 26.4 pg (27.0-31.0); Platelet Count 273 thou/uL (130-400); RBC Distribution Width 14.1 % (11.5-14.5); Red Blood Cell (RBC) Count 3.91 mill/uL (4.20-5.40); White Blood Cell (WBC) Count 5.6 thou/uL (4.8-10.8)
[2021-10-24] MEDS: Enoxaparin Sodium 40 MG/0.4 ML SYRINGE SC SCH (08:02)
[2021-10-24 08:29] VITALS: BP 122/85
[2021-10-24 08:38] LABS: Eosinophils 2 % (0-10); Hypochromia SLIGHT = 6-15 cells (100X) (0-5/hpf); Lymphocytes 27 % (21-51); MDiff Complete? YES; Monocytes 8 % (0-10); Neutrophil 63 % (42-75); Platelet Morphology Comment Appears Adequate; Polychromasia SLIGHT = 2-3 cells (100X) (0-2/hpf)
== END 2021-10-24 10:49 | disposition home or self-care (01) | DRG 872 ==
LOC: ERS 07:35 → T4-B 11:24
PROVIDERS: ADMIT Internal Medicine; ATTEND Internal Medicine
DX: A41.51 Sepsis due to Escherichia coli [E. coli] (principal); N10 Acute pyelonephritis; Z20.822 Contact with and (suspected) exposure to COVID-19; E11.9 Type 2 diabetes mellitus without complications; E66.9 Obesity, unspecified; D50.8 Other iron deficiency anemias; K02.9 Dental caries, unspecified; Z68.36 Body mass index [BMI] 36.0-36.9, adult; Z87.442 Personal history of urinary calculi
CPT/HCPCS: 36415; 36416; 70487; 71275; 74177; 76705; 80053; 80306; 80307; 81003; 81015; 82010; 82140; 82805; 83605; 83690; 84145; 84484; 84703; 85025; 85610; 85730; 87040; 87077; 87086; 87149; 87186; 93005; 94760; J0692; J1650; J2405; J3370; J3490; J7030; J7050; Q9967; U0002